=== PATIENT | female | born 1965 ===

== ENCOUNTER 2017-09-27 12:34 | Emergency (ER) | payer OTHER ==
[2017-09-27 12:51] VITALS: O2SAT 99
[2017-09-27] MEDS ORDERED: Sodium Chloride 0.9% 1,000 ML IV ONE (14:46)
[2017-09-27 15:10] LABS: BASO % 0.4 % (0.0-2.0); EOS # 0.3 K/uL (0.0-0.7); EOS % 3.3 % (0.0-4.0); HEMOGLOBIN 12.8 g/dL (11.0-16.0); LYMPH # 1.9 K/uL (1.0-4.3); LYMPH % 22.6 % (20.0-40.0); MEAN CELL VOLUME 92.5 fL (81.0-99.0); MEAN CORPUSCULAR HEMOGLOBIN 31.4 pg (27.0-31.0); MEAN CORPUSCULAR HGB CONC 33.9 g/dL (33.0-37.0); MEAN PLATELET VOLUME 7.1 fL (7.2-11.7); MONO # 0.7 K/uL (0.0-0.8); MONO % 8.4 % (0.0-10.0); NEUT # 5.4 K/uL (1.8-7.0); NEUT % 65.3 % (50.0-75.0); NRBC % 0.1 % (0.0-2.0); RBC 4.07 Mil/uL (3.80-5.20); RED CELL DISTRIBUTION WIDTH 13.4 % (11.5-14.5); WHITE BLOOD COUNT 8.3 K/uL (4.8-10.8)
[2017-09-27] MEDS ORDERED: Sodium Chloride 0.9% 1,000 ML ONE (15:12)
[2017-09-27 15:28] LABS: ALB/GLOB RATIO 1.1 (1.0-2.1); ALT/SGPT 29 U/L (9-52); AST/SGOT 27 U/L (14-36); BLOOD UREA NITROGEN 18 mg/dL (7-17); CALCIUM 9.4 mg/dl (8.6-10.4); GFR AFRICAN-AMERICAN > 60; GFR NON-AFRICAN AMERICAN > 60
--- NOTE | 2017-09-27 15:45 | C.PDOC ---
History Of Present Illness 52-year-old female, presents to the emergency department with complaints of six- day duration of sore throat, congestion and cough. Symptoms have persisted and progressed to the point that now she has post-tussive vomiting. Patient also notes associated clear nasal discharge, headache, generalized body aches and fever (T-Max 101). Of note, patient reports she is unable to sleep or rest. Time Seen by Provider: 09/27/17 14:40 Chief Complaint (Nursing): Shortness Of Breath History Per: Patient History/Exam Limitations: no limitations Onset/Duration Of Symptoms: Days (6) Current Symptoms Are (Timing): Still Present Severity: Moderate Past Medical History Reviewed: Historical Data, Nursing Documentation, Vital Signs Vital Signs: Last Vital Signs Temp 98.1 F 09/27/17 12:46 Pulse 84 09/27/17 12:46 Resp 16 09/27/17 15:12 BP 107/74 09/27/17 12:46 Pulse Ox 99 09/27/17 15:49 - Medical History PMH: Back Problems, Bronchitis, Hypercholesterolemia (NO MEDS), Kidney Stones, Chronic Kidney Disease Surgical History: Endoscopy Family History: States: No Known Family Hx - Social History Hx Tobacco Use: Yes Hx Alcohol Use: No Hx Substance Use: No - Immunization History Hx Tetanus Toxoid Vaccination: No Hx Influenza Vaccination: No Hx Pneumococcal Vaccination: No Review Of Systems Constitutional: Positive for: Fever. Negative for: Weakness ENT: Positive for: Nose Congestion, Throat Pain. Negative for: Ear Pain Cardiovascular: Negative for: Chest Pain Respiratory: Positive for: Cough. Negative for: Shortness of Breath Gastrointestinal: Positive for: Vomiting. Negative for: Abdominal Pain, Diarrhea Musculoskeletal: Negative for: Back Pain Skin: Negative for: Rash Neurological: Positive for: Headache Physical Exam - Physical Exam Appears: Non-toxic, No Acute Distress Skin: Normal Color, Warm, Dry, No Rash Head: Normacephalic Eye(s): bilateral: PERRL Nose: Normal, Discharge (clear, rhinorrhea) Oral Mucosa: Moist Lips: Normal Appearing Neck: Normal ROM Chest: Symmetrical Cardiovascular: Rhythm Regular, No Murmur Respiratory: No Decreased Breath Sounds, No Accessory Muscle Use, No Rales, No Rhonchi, No Stridor, No Wheezing, Other (Harsh, barking cough. No respiratory distress.) Extremity: Normal ROM, No Deformity, No Swelling Neurological/Psych: Oriented x3, Normal Speech ED Course And Treatment - Laboratory Results Result Diagrams: 09/27/17 15:03 09/27/17 15:03 Lab Interpretation: No Acute Changes O2 Sat by Pulse Oximetry: 99 (RA) Pulse Ox Interpretation: Normal - Radiology CXR: Interpreted by Me CXR Interpretation: Yes: No Acute Disease Reevaluation Time: 15:52 Reassessment Condition: Improved Disposition Counseled Patient/Family Regarding: Studies Performed, Diagnosis, Need For Followup, Rx Given - Disposition Referrals: Aldo Hawthorne MD [Staff Provider] - Disposition: HOME/ ROUTINE Disposition Time: 15:53 Condition: STABLE Prescriptions: Azithromycin [Zithromax] 250 mg PO DAILY #6 tab Methylprednisolone [Medrol Dose Pack (21 tabs)] 4 mg PO DAILY #21 mg Instructions: Acute Bronchitis Forms: [facility] (Thai) - Clinical Impression Clinical Impression: Bronchitis - Scribe Statement The provider has reviewed the documentation as recorded by the Scribe (Wali Kirby) All medical record entries made by the Scribe were at my direction and personally dictated by me. I have reviewed the chart and agree that the record accurately reflects my personal performance of the history, physical exam, medical decision making, and the department course for this patient. I have also personally directed, reviewed, and agree with the discharge instructions and disposition.
--- NOTE | 2017-09-27 15:50 | RAD ---
PROCEDURE: CHEST RADIOGRAPH, 1 VIEW HISTORY: SOB COMPARISON: Chest radiograph dated 08/03/2014 FINDINGS: LUNGS: Clear. PLEURA: No pneumothorax or pleural fluid seen. CARDIOVASCULAR: Normal. OSSEOUS STRUCTURES: No significant abnormalities. VISUALIZED UPPER ABDOMEN: Normal. OTHER FINDINGS: None. IMPRESSION: No active disease.
[2017-09-27 16:02] VITALS: BP 127/78; PULSE 75; RESP 18; TEMP 98.5
== END 2017-09-27 16:12 | disposition home or self-care (01) ==
LOC: C.ER 12:34
DX: J40 Bronchitis, not specified as acute or chronic (principal)
CPT/HCPCS: 71045; 80053; 82948; 85025; 87804; 96360; 99285; J7040

== ENCOUNTER 2017-10-01 10:27 | Emergency (ER) | payer OTHER ==
[2017-10-01 10:39] VITALS: RESP 16; O2SAT 98
--- NOTE | 2017-10-01 11:41 | C.PDOC ---
History Of Present Illness 52 year old female presents to the ED for evaluation of urticaria and gives over her arms and legs which began yesterday. Patient states she recently started taking z-pack for bronchitis. She has been taking Benadryl without relief. Patient denies mouth swelling, shortness of breath, wheezing, mouth swelling, headache, fever, chills, nausea, and vomiting. Time Seen by Provider: 10/01/17 10:46 Chief Complaint (Nursing): Allergic Reaction History Per: Patient History/Exam Limitations: no limitations Onset/Duration Of Symptoms: Hrs Current Symptoms Are (Timing): Still Present Possible Cause: Medication Associated Symptoms: Skin Rash. denies: Swelling, Trouble Swallowing Home/EMS Treatment: Benadryl Additional History Per: Patient Past Medical History Reviewed: Historical Data, Nursing Documentation, Vital Signs Vital Signs: Last Vital Signs Temp 97.8 F 10/01/17 11:52 Pulse 69 10/01/17 11:52 Resp 16 10/01/17 11:52 BP 114/75 10/01/17 11:52 Pulse Ox 98 10/01/17 14:14 - Medical History PMH: Back Problems, Bronchitis, Hypercholesterolemia (NO MEDS), Kidney Stones, Chronic Kidney Disease Surgical History: Endoscopy Family History: States: Unknown Family Hx - Social History Hx Tobacco Use: Yes Hx Alcohol Use: No Hx Substance Use: No - Immunization History Hx Tetanus Toxoid Vaccination: No Hx Influenza Vaccination: No Hx Pneumococcal Vaccination: No Review Of Systems Skin: Positive for: Other (urticaria and hives to arms and legs ) Physical Exam - Physical Exam Appears: Non-toxic, No Acute Distress Skin: Warm, Dry, Other (diffuse hives ) Head: Atraumatic, Normacephalic Eye(s): bilateral: Normal Inspection Oral Mucosa: Moist Tongue: Normal Appearing, No Swelling Lips: Normal Appearing, No Swelling Throat: Normal, No Erythema, No Exudate Neck: Supple Chest: Symmetrical, No Deformity, No Tenderness Cardiovascular: Rhythm Regular, No Murmur Respiratory: Normal Breath Sounds, No Rales, No Rhonchi, No Wheezing Extremity: Normal ROM, Capillary Refill (less than 2 seconds ) Neurological/Psych: Oriented x3, Normal Speech, Normal Cognition ED Course And Treatment O2 Sat by Pulse Oximetry: 98 (on RA) Pulse Ox Interpretation: Normal Medical Decision Making Medical Decision Making: Impression: 52 year old female with diffuse urticaria Plan: * Benadryl IVP * Pepcid PO * Prednisone PO * reassess and disposition Progress: Benadryl IVP, PEpcid PO, and Prednisone PO administered. On re-exam, patient is resting comfortably, showing no signs of respiratory distress and is stable for discharge. Patient is advised to f/u with her PMD within 1-2 days for further evaluation and/or return to the ED if symptoms persist or worsen. Disposition Counseled Patient/Family Regarding: Diagnosis, Need For Followup, Rx Given - Disposition Referrals: [facility] at [facility] [Outside] Disposition: HOME/ ROUTINE Disposition Time: 11:38 Condition: STABLE Additional Instructions: Follow up with your doctor or our clinic Prescriptions: DiphenhydrAMINE [Benadryl] 50 mg PO TID #9 cap Famotidine [Pepcid] 20 mg PO BID #6 tab Prednisone [Deltasone] 60 mg PO DAILY #9 tablet Instructions: Hives Forms: General Discharge Instructions, [facility] (Kuwaiti), Work Excuse - Clinical Impression Clinical Impression: Allergic urticaria - Scribe Statement The provider has reviewed the documentation as recorded by the Scribe (Trinity Haines) Provider Attestation: All medical record entries made by the Scribe were at my direction and personally dictated by me. I have reviewed the chart and agree that the record accurately reflects my personal performance of the history, physical exam, medical decision making, and the department course for this patient. I have also personally directed, reviewed, and agree with the discharge instructions and disposition.
[2017-10-01 11:53] VITALS: BP 114/75; PULSE 69; TEMP 97.8
== END 2017-10-01 11:55 | disposition home or self-care (01) ==
LOC: C.ER 10:27
DX: L50.0 Allergic urticaria (principal)

== ENCOUNTER 2017-12-22 16:44 | Emergency (ER) | payer OTHER ==
--- NOTE | 2017-12-22 17:33 | RAD ---
Date of service: 12/22/2017 PROCEDURE: Left Knee Radiographs. HISTORY: Pain. COMPARISON: None. FINDINGS: BONES: No acute fracture. JOINTS: Unremarkable. JOINT EFFUSION: None. OTHER FINDINGS: None. IMPRESSION: No demonstrated fracture or dislocation.
--- NOTE | 2017-12-22 17:43 | C.PDOC ---
History Of Present Illness 52 yo female w/o significant PMHx come in for evaluation of left knee pain gradually developed for past 3 days. Pt reports, " when I walk, my knee clicks and it hurts". Otherwise, pt denies known trauma or injury, fever, chills, deformity, skin changes over knee, swelling, redness, denies weakness, sensory or vascular deficits to Left leg, left calf pain. Ambulate to ED, knee brace noted. Time Seen by Provider: 12/22/17 16:53 Chief Complaint (Nursing): Lower Extremity Problem/Injury History Per: Patient Past Medical History Reviewed: Historical Data, Nursing Documentation, Vital Signs Vital Signs: Last Vital Signs Temp 98.7 F 12/22/17 17:01 Pulse 91 H 12/22/17 17:01 Resp 18 12/22/17 17:01 BP 100/62 12/22/17 17:01 Pulse Ox 100 12/22/17 17:01 - Medical History PMH: Back Problems, Bronchitis, Hypercholesterolemia (NO MEDS), Kidney Stones, Chronic Kidney Disease Surgical History: Endoscopy Family History: States: Unknown Family Hx - Social History Hx Tobacco Use: Yes Hx Alcohol Use: No Hx Substance Use: No - Immunization History Hx Tetanus Toxoid Vaccination: No Hx Influenza Vaccination: No Hx Pneumococcal Vaccination: No Review Of Systems Except As Marked, All Systems Reviewed And Found Negative. Constitutional: Negative for: Fever, Chills ENT: Negative for: Throat Pain, Throat Swelling Genitourinary: Negative for: Incontinence Musculoskeletal: Positive for: Other (Left knee pain) Skin: Negative for: Rash, Bruising Neurological: Negative for: Weakness, Numbness Physical Exam - Physical Exam Appears: Well, Non-toxic, No Acute Distress Skin: Normal Color, Warm, No Rash, No Ecchymosis Head: Normacephalic Eye(s): bilateral: PERRL Extremity: Normal ROM (FAROM of Left knee with mild discomfort to Left knee flexion due to pain. No neurovascular deficist distally.), Tenderness (diffuse over anterior aspect Left knee. No palpable deformity, no edema, no erythema or warmth.), No Calf Tenderness (Left), Capillary Refill (less than 2sec to left foot), No Deformity, No Swelling Neurological/Psych: Oriented x3, Normal Speech, Normal Motor, Normal Sensation, Normal Reflexes ED Course And Treatment O2 Sat by Pulse Oximetry: 100 Pulse Ox Interpretation: Normal - Other Rad Left knee X-Ray: Read By Radiologist Interpretation: (-) acute fx or dislocation Progress Note: On re-evaluation, pt is afebrile, hemodynamicaly stable. Non- toxic. Ambulatory in ED with stable gait. ENT: No acute findings. Left knee: exam mild tenderness anterior aspect knee, No edmea, no erythema, no deformity. FAROM, no neurovascular deficits. Imaging review (-) acute fx or disloctaion. Pt has clinical findings c/w Left knee arthralgia. Knee brace re-applied. Pt advised. ref. to f/u with Ortho in 2 -3 days for re-evaluation. return to ED if any worsening or new changes. Disposition Counseled Patient/Family Regarding: Studies Performed, Diagnosis, Need For Followup, Rx Given - Disposition Referrals: Shaik Andrews MD [Staff Provider] - Juan R Suarez III, MD [Staff Provider] - Disposition: HOME/ ROUTINE Disposition Time: 17:38 Condition: STABLE Additional Instructions: Knee brace take medication as prescribed Follow up with PMD, Orthopedist in 2-3 days for further evaluation, MRI of knee for evaluation of ligament and meniscus injury. return to ED if nay worsening or new changes. Prescriptions: Prednisone [Deltasone] 40 mg PO DAILY #6 tablet Instructions: Knee Pain (DC), Osteoarthritis - Clinical Impression Clinical Impression: Arthralgia of knee
[2017-12-22 18:10] VITALS: BP 104/70; PULSE 80; RESP 20; TEMP 98.1; O2SAT 97
== END 2017-12-22 18:11 | disposition home or self-care (01) ==
LOC: C.ER 16:44
DX: M25.562 Pain in left knee (principal)

== ENCOUNTER 2018-01-14 15:51 | Emergency (ER) | payer OTHER ==
[2018-01-14 16:09] VITALS: BP 121/69; PULSE 95; RESP 16; TEMP 98; O2SAT 98
--- NOTE | 2018-01-14 16:29 | C.PDOC ---
History Of Present Illness 52 yo female come in for re-evaluation of left knee pain gradually developed for past 3 days. Pt reports, " when I walk, my knee clicks and it hurts". Pt admits, was seen here in ED month ago when imaging was done without acute findings and received Rx: Tramadol, Prednisone with complete resolution of sx. Pt reports, pain over posterior Left knee gradually re-occur over past week. Pain is localized, worse with weight bearing. Pt request "same treatment, while waiting for ortho appointment". Otherwise, pt denies known recent trauma or injury, fever, chills, deformity, skin changes over knee, swelling, redness, denies weakness, sensory or vascular deficits to Left leg, left calf pain. Ambulate to ED, knee brace noted. Time Seen by Provider: 01/14/18 16:06 Chief Complaint (Nursing): Lower Extremity Problem/Injury History Per: Patient Onset/Duration Of Symptoms: Gradual Past Medical History Reviewed: Historical Data, Nursing Documentation, Vital Signs Vital Signs: Last Vital Signs Temp 98 F 01/14/18 16:07 Pulse 95 H 01/14/18 16:07 Resp 16 01/14/18 16:07 BP 121/69 01/14/18 16:07 Pulse Ox 98 01/14/18 17:11 - Medical History PMH: Back Problems, Bronchitis, Hypercholesterolemia (NO MEDS), Kidney Stones, Chronic Kidney Disease Surgical History: Endoscopy Family History: States: Unknown Family Hx - Social History Hx Tobacco Use: Yes Hx Alcohol Use: No Hx Substance Use: No - Immunization History Hx Tetanus Toxoid Vaccination: No Hx Influenza Vaccination: No Hx Pneumococcal Vaccination: No Review Of Systems Except As Marked, All Systems Reviewed And Found Negative. Constitutional: Negative for: Fever, Chills ENT: Negative for: Throat Pain, Throat Swelling Cardiovascular: Negative for: Chest Pain, Palpitations Musculoskeletal: Positive for: Other (Left knee pain). Negative for: Neck Pain , Back Pain Skin: Negative for: Rash, Lesions, Bruising Neurological: Negative for: Weakness, Numbness Physical Exam - Physical Exam Appears: Well, Non-toxic, No Acute Distress Skin: Normal Color, Warm, No Ecchymosis Head: Normacephalic Eye(s): bilateral: PERRL Extremity: Normal ROM (mild discomfort to Left knee flexion due to pain, no neurovascular deficits.), Tenderness (mod over posterior aspect Left knee. No edema, no erythema, no palpable deformity.), No Deformity, No Swelling Neurological/Psych: Oriented x3, Normal Speech, Normal Motor, Normal Sensation, Normal Reflexes ED Course And Treatment O2 Sat by Pulse Oximetry: 98 - Other Rad Left knee from 12/22/17 X-Ray: Read By Radiologist Interpretation: Accession No. : [id number]. Patient Name / ID : ANNIE HALL / [id number]. Exam Date : 12/22/2017 17:20:56 ( Approved ). Study Comment : Sex / Age : F / 52Y. Creator : Boyd Chavez MD. Dictator : Boyd Chavez MD. Fuselage Framer : Card Mounter : Boyd Chavez MD. Approver2 : Report Date : 12/22/2017 17:31:25. My Comment : . Date of service: 12/22/2017. PROCEDURE: Left Knee Radiographs. HISTORY: Pain. COMPARISON: None. FINDINGS: BONES: No acute fracture. JOINTS: Unremarkable. JOINT EFFUSION: None. OTHER FINDINGS: None. IMPRESSION: No demonstrated fracture or dislocation. Progress Note: On re-evaluation, pt is afebrile, hemodynamicaly stable. AMbulatory in ED. Left knee: diffuse posterior Left knee tenderness. No edema, no erythema, no palpable deformity. FAROM, no neurovascular deficits. Imaging from previous visits review, appears normal. No recent injury by history. Pt has clinical findings c/w Left knee arthralgia, chronic. Left knee immobilizer applied to Left knee. Pt advised on course of ds. ref. to F/u with Ortho in 2 -3 days for re-eval. return if any new changes. Disposition Counseled Patient/Family Regarding: Diagnosis, Need For Followup, Rx Given - Disposition Referrals: Shaik Andrews MD [Staff Provider] - at [facility] [Outside] Disposition: HOME/ ROUTINE Disposition Time: 16:28 Condition: STABLE Additional Instructions: Follow up with Orthopedist in 2-3 days for re-evaluation and further treatment Return to ED if any worsening or new changes. Prescriptions: Prednisone [Deltasone] 40 mg PO DAILY #6 tablet traMADol [Ultram] 50 mg PO TID #7 tab Instructions: Knee Immobilizer (DC), Chronic Knee Pain Forms: [facility] (Croatian) - Clinical Impression Clinical Impression: Arthralgia of knee
== END 2018-01-14 16:38 | disposition home or self-care (01) ==
LOC: C.ER 15:51
DX: M25.562 Pain in left knee (principal)

== ENCOUNTER 2018-05-07 16:36 | Emergency (ER) | payer OTHER ==
[2018-05-07 17:05] VITALS: BP 135/80; PULSE 89; RESP 18; TEMP 98.6; O2SAT 100
[2018-05-07] MEDS ORDERED: Albuterol-Ipratrop 3 mg / 0.5 (3 ml) UD ONE (17:16)
[2018-05-07] MEDS ORDERED: Albuterol 0.083% Inhal Sol (2.5 mg/3 mL) UD IH STA ×2 (17:23→17:39)
[2018-05-07] MEDS ORDERED: Promethazine/Cod 6.25mg-10mg/5ml Syr UD PO STA (17:23)
[2018-05-07] MEDS ORDERED: Promethazine/Cod 6.25mg-10mg/5ml Syr UD ONE (17:39)
--- NOTE | 2018-05-07 17:45 | C.PDOC ---
History Of Present Illness 52 yo female w/PMHx of asthma, smoker comes in for evaluation of cold sx for past 3-4 days associated with nasal congestion, runny nose, dry cough. Pt sts, since early today, developed chest tightness, " spasmatic cough". Otherwise, pt denies high fever, chills, headache, dizziness, drooling. dysphagia, dyspnea, wheezing, abd. pain, N/V/D, UTO sx. Ambulate to Ed for evaluation, occasional dry cough monitored in ED. Time Seen by Provider: 05/07/18 17:22 Chief Complaint (Nursing): Cough, Cold, Congestion History Per: Patient Past Medical History Reviewed: Historical Data, Nursing Documentation, Vital Signs Vital Signs: Last Vital Signs Temp 98.6 F 05/07/18 17:02 Pulse 89 05/07/18 17:02 Resp 18 05/07/18 17:02 BP 135/80 05/07/18 17:02 Pulse Ox 100 05/07/18 17:02 - Medical History PMH: Back Problems, Bronchitis, Hypercholesterolemia (NO MEDS), Kidney Stones, Chronic Kidney Disease Surgical History: Endoscopy Family History: States: Unknown Family Hx - Social History Hx Tobacco Use: Yes Hx Alcohol Use: No Hx Substance Use: No - Immunization History Hx Tetanus Toxoid Vaccination: No Hx Influenza Vaccination: No Hx Pneumococcal Vaccination: No Review Of Systems Except As Marked, All Systems Reviewed And Found Negative. Constitutional: Negative for: Fever, Chills ENT: Positive for: Nose Discharge, Nose Congestion. Negative for: Ear Discharge, Throat Pain, Throat Swelling Cardiovascular: Negative for: Chest Pain, Palpitations, Edema, Light Headedness Respiratory: Positive for: Shortness of Breath. Negative for: Cough, SOB with Excertion, Pleuritic Pain, Sputum, Wheezing Gastrointestinal: Negative for: Nausea, Vomiting, Abdominal Pain Musculoskeletal: Negative for: Neck Pain, Back Pain Skin: Negative for: Rash Neurological: Negative for: Altered Mental Status, Headache, Dizziness Physical Exam - Physical Exam Appears: Well, Non-toxic, No Acute Distress Skin: Normal Color, Warm, Dry, No Rash Head: Normacephalic Eye(s): bilateral: PERRL Nose: No Flaring, Discharge (B/l congestion) Oral Mucosa: Moist Throat: No Erythema, No Drooling Neck: Supple Cardiovascular: Rhythm Regular, No Murmur, No JVD Respiratory: No Decreased Breath Sounds, No Accessory Muscle Use, No Stridor, No Wheezing Gastrointestinal/Abdominal: Soft, No Tenderness, No Distention, No Guarding, No Rebound Extremity: Normal ROM, No Deformity, No Swelling Neurological/Psych: Oriented x3, Normal Speech ED Course And Treatment ECG: Interpreted By Me, Viewed By Me ECG Rhythm: Sinus Rhythm ECG Interpretation: No Changes From Prior Interpretation Of ECG: SR@91/min, no acute T wave or ST-T changes O2 Sat by Pulse Oximetry: 100 Pulse Ox Interpretation: Normal - Radiology CXR: Interpreted by Me, Read By Radiologist CXR Interpretation: Yes: No Acute Disease Progress Note: On re-eval, pt is afebrile, hemodynamicaly stable. NOn-toxic, not in resp. distress. PulseOx 99% RA. ENT: no acute findings. neck: SUpple, (-) JVD, (-) carotid bruits B/L. Lungs: CTA B/L, BS equal B/L. CVS: (+)S1S2, reg, (-) murmur. Abd: benign. Back: (-) CVA tenderness. neuorlogicaly intact. EKG, CXR- normal study. Pt has clinical findings c/w acute bronchitis, asthma, smoker. Pt advised and ref. to f/u with PMD in 2-3 days for re-eval. return if any new changes. Disposition Counseled Patient/Family Regarding: Studies Performed, Diagnosis, Need For Followup, Rx Given - Disposition Referrals: [facility] [Outside] Disposition: HOME/ ROUTINE Disposition Time: 18:59 Condition: STABLE Additional Instructions: Encourage fluids Take medication as prescribed Follow up with PMD in 2-3 days for re-evaluation. return to Ed if any worsening or new changes. Prescriptions: Albuterol 0.083% [Albuterol 0.083% Inhal Aubrie (2.5 mg/3 ml) UD] 2.5 mg IH Q6 #50 neb Albuterol HFA [Ventolin HFA 90 mcg/actuation (8 g)] 1 puff IH Q6 #1 inhaler Cefdinir [Omnicef] 300 mg PO BID #14 cap Prednisone [Deltasone] 40 mg PO DAILY #6 tablet Promethazine/Codeine [Phenergan/Codeine Oral Syrup] 10 ml PO BID #100 ml Instructions: Acute Bronchitis Forms: [facility] (Mongolian) - Clinical Impression Clinical Impression: Bronchitis
[2018-05-07] MEDS ORDERED: Racepinephrine 2.25% Inhal Soln 0.5 ML UD INH ONE (17:58)
[2018-05-07] MEDS ORDERED: Albuterol 0.083% Inhal Sol (2.5 mg/3 mL) UD ONE (18:03)
[2018-05-07] MEDS ORDERED: Racepinephrine 2.25% Inhal Soln 0.5 ML UD ONE (18:03)
--- NOTE | 2018-05-07 18:21 | RAD ---
Date of service: 05/07/2018 HISTORY: Cough COMPARISON: 09/27/2017 TECHNIQUE: Chest PA and lateral FINDINGS: LUNGS: No active pulmonary disease. PLEURA: No significant pleural effusion identified. No pneumothorax apparent. CARDIOVASCULAR: No aortic atherosclerotic calcification present. Normal cardiac size. No pulmonary vascular congestion. OSSEOUS STRUCTURES: No significant abnormalities. VISUALIZED UPPER ABDOMEN: Normal. OTHER FINDINGS: None. IMPRESSION: No active disease. No significant interval change compared to the prior examination(s). Concordant results with the preliminary interpretation rendered by the emergency department physician procedure.
--- NOTE | 2018-05-08 17:08 | CARD ---
APPROVED REPORT Date of service: 05/07/2018 EKG Measurement Heart [id number] <Conclusion> Normal sinus rhythm Possible Left atrial enlargement ST & T wave abnormality, nonspecific Prolonged QT Abnormal ECG
== END 2018-05-07 19:11 | disposition home or self-care (01) ==
LOC: C.ER 16:36
DX: J40 Bronchitis, not specified as acute or chronic (principal); E78.00 Pure hypercholesterolemia, unspecified; F17.200 Nicotine dependence, unspecified, uncomplicated

== ENCOUNTER 2018-07-16 15:36 | Emergency (ER) | payer OTHER ==
[2018-07-16 15:50] VITALS: TEMP 98.3
--- NOTE | 2018-07-16 16:11 | C.PDOC ---
History Of Present Illness 53 year old female presents to the ED for evaluation of left knee pain and swelling for 4-5 days. Patient reports history of an old injury to the knee in January 2018, and has been hearing an occasional clicking sound and feeling pain to the area since. She was instructed to follow up with orthopedic care, but was unable to due to insurance issues. She denies fever, chills, rash, calf pain, or any new injuries/trauma or falls. Time Seen by Provider: 07/16/18 15:51 Chief Complaint (Nursing): Lower Extremity Problem/Injury History Per: Patient History/Exam Limitations: no limitations Onset/Duration Of Symptoms: Days (4-5) Current Symptoms Are (Timing): Still Present - Knee Description Of Injury: Other (old injury ) Past Medical History Reviewed: Historical Data, Nursing Documentation, Vital Signs Vital Signs: Last Vital Signs Temp 98.3 F 07/16/18 15:46 Pulse 89 07/16/18 15:46 Resp 18 07/16/18 15:46 BP 122/79 07/16/18 15:46 Pulse Ox 97 07/16/18 15:46 - Medical History PMH: Back Problems, Bronchitis, Hypercholesterolemia, Kidney Stones, Chronic Kidney Disease Surgical History: Endoscopy Family History: States: Unknown Family Hx - Social History Hx Tobacco Use: Yes Hx Alcohol Use: No Hx Substance Use: No - Immunization History Hx Tetanus Toxoid Vaccination: No Hx Influenza Vaccination: No Hx Pneumococcal Vaccination: No Review Of Systems Constitutional: Negative for: Fever, Chills Musculoskeletal: Negative for: Other (left knee pain and swelling. no calf pain ) Skin: Negative for: Rash Physical Exam - Physical Exam Appears: Non-toxic, Other (in mild pain ) Skin: Normal Color, Warm, Dry Head: Atraumatic, Normacephalic Eye(s): bilateral: Normal Inspection Oral Mucosa: Moist Neck: Supple Chest: Symmetrical, No Deformity, No Tenderness Cardiovascular: Rhythm Regular, No Murmur Respiratory: Normal Breath Sounds, No Rales, No Rhonchi, No Wheezing Extremity: Normal ROM, Tenderness (to left suprapatellar region ), No Calf Tenderness, Capillary Refill (less than 2 seconds ), No Deformity, Other (suprapatellar effusion to left knee. no palpable mass to popliteal area. no warmth or erythema to skin ) Pulses: Left Dorsalis Pedis: Normal, Right Dorsalis Pedis: Normal Neurological/Psych: Oriented x3, Normal Speech, Normal Cognition, Normal Motor, Normal Sensation ED Course And Treatment O2 Sat by Pulse Oximetry: 97 (on RA) Pulse Ox Interpretation: Normal Progress Note: Patient reports allergy to NSAIDS. Prednisone PO and Tylenol PO given. Knee brace applied and patient was trained on crutch use. On reassessment, patient is resting comfortably, showing no signs of distress and reports an improvement in her pain. She is advised to follow up with orthopedic care within 1 week for further evaluation. Disposition Counseled Patient/Family Regarding: Studies Performed, Diagnosis, Need For Followup, Rx Given - Disposition Referrals: Bud Younger MD [Staff Provider] - Shaik Andrews MD [Staff Provider] - Disposition: HOME/ ROUTINE Disposition Time: 16:30 Condition: STABLE Additional Instructions: FOLLOW UP WITH ORTHOPEDICS WITHIN 1 WEEK USE MEDICATIONS NEEDED ELEVATE THE LEG MUCH POSSIBLE RETURN TO ER IF SYMPTOMS WORSEN Prescriptions: Acetaminophen [Tylenol 325mg tab] 650 mg PO Q6 PRN #30 tab PRN Reason: pain/fever predniSONE [predniSONE Tab] 40 mg PO DAILY #8 tab traMADol [Ultram] 50 mg PO BID PRN #12 tab PRN Reason: pain Instructions: Bursitis (DC) Forms: [employer] (Tanzanian) Print Language: KYRGYZ - Clinical Impression Clinical Impression: Bursitis of left knee - Scribe Statement The provider has reviewed the documentation as recorded by the Scribe (Trinity Haines) Provider Attestation: All medical record entries made by the Scribe were at my direction and personally dictated by me. I have reviewed the chart and agree that the record accurately reflects my personal performance of the history, physical exam, medical decision making, and the department course for this patient. I have also personally directed, reviewed, and agree with the discharge instructions and disposition.
[2018-07-16 17:14] VITALS: BP 128/76; PULSE 68; RESP 16
[2018-07-17 14:02] VITALS: O2SAT 97
== END 2018-07-16 17:14 | disposition home or self-care (01) ==
LOC: C.ER 15:36
DX: M70.52 Other bursitis of knee, left knee (principal)

== ENCOUNTER 2018-07-18 15:54 | Emergency (ER) | payer OTHER ==
[2018-07-18 16:03] VITALS: TEMP 97.9
--- NOTE | 2018-07-18 16:23 | C.PDOC ---
History Of Present Illness 53 y/o female presents to the ER complaining of left knee swelling which has been present for the past few months. Patient states that she had remote trauma 3 months ago and had xrays at that time. Patient reports she was evaluated for same complaint in [facility] 2 days ago. At the time, she was diagnosed with bursitis and she was prescribed Prednisone and follow up with orthopedics. She has been taking Prednisone, but she still has pain and swelling. She notes that she has not followed up with an orthopedist stating the next appointment would be in 2019. Denies having weakness and numbness. She is able to fully weight bear. Time Seen by Provider: 07/18/18 16:06 Chief Complaint (Nursing): Lower Extremity Problem/Injury History Per: Patient History/Exam Limitations: no limitations Onset/Duration Of Symptoms: Days Current Symptoms Are (Timing): Still Present Severity: Moderate Past Medical History Reviewed: Historical Data, Nursing Documentation, Vital Signs Vital Signs: Last Vital Signs Temp 97.9 F 07/18/18 16:01 Pulse 88 07/18/18 16:01 Resp 18 07/18/18 16:01 BP 129/65 07/18/18 16:01 Pulse Ox 96 07/18/18 16:01 - Medical History PMH: Back Problems, Bronchitis, Hypercholesterolemia, Kidney Stones, Chronic Kidney Disease Surgical History: Endoscopy Family History: States: No Known Family Hx - Social History Hx Tobacco Use: Yes Hx Alcohol Use: No Hx Substance Use: No - Immunization History Hx Tetanus Toxoid Vaccination: No Hx Influenza Vaccination: No Hx Pneumococcal Vaccination: No Review Of Systems Constitutional: Negative for: Fever, Chills Musculoskeletal: Positive for: Other (left knee pain and swelling) Neurological: Negative for: Weakness, Numbness Physical Exam - Physical Exam Appears: Non-toxic, No Acute Distress Skin: Normal Color, Warm, Dry Head: Atraumatic, Normacephalic Eye(s): bilateral: Normal Inspection Nose: Normal Oral Mucosa: Moist Neck: Supple Chest: Symmetrical Cardiovascular: Rhythm Regular Respiratory: Normal Breath Sounds, No Rales, No Rhonchi, No Wheezing Extremity: No Normal ROM (full extension and some restriction of flexion about 90 degrees in left knee), No Tenderness Extremity: Left: Joint Effusion (suprapatellar effusion to left knee) Neurological/Psych: Oriented x3, Normal Speech ED Course And Treatment O2 Sat by Pulse Oximetry: 96 (RA) Pulse Ox Interpretation: Normal Disposition Counseled Patient/Family Regarding: Diagnosis, Need For Followup - Disposition Referrals: [facility] at [facility] [Outside] Disposition: HOME/ ROUTINE Disposition Time: 16:22 Condition: STABLE Additional Instructions: Follow up with your primary provider to obtain an outpatient MRI and referral for physical therapy. Complete the Prednisone as prescribed then switch to Aleve 2 tablets every 12 hours as needed. Instructions: Swollen Joints Forms: [employer] (Hong Konger) - Clinical Impression Clinical Impression: Effusion, left knee - Scribe Statement The provider has reviewed the documentation as recorded by the Octaviaibe Catrachita Denise Provider Attestation: All medical record entries made by the Leonarda were at my direction and personally dictated by me. I have reviewed the chart and agree that the record accurately reflects my personal performance of the history, physical exam, medical decision making, and the department course for this patient. I have also personally directed, reviewed, and agree with the discharge instructions and disposition.
[2018-07-18 17:30] VITALS: BP 159/68; PULSE 75; RESP 20; O2SAT 98
== END 2018-07-18 17:32 | disposition home or self-care (01) ==
LOC: C.ER 15:54
DX: M25.462 Effusion, left knee (principal); E78.00 Pure hypercholesterolemia, unspecified; N18.9 Chronic kidney disease, unspecified; Z72.0 Tobacco use

== ENCOUNTER 2018-07-26 09:41 | Outpatient (CLI) | payer OTHER | END 2018-07-26 09:42 | disposition home or self-care (01) | LOC: C.MAMMO 09:42 | DX: Z12.31 Encounter for screening mammogram for malignant neoplasm of breast (principal) ==

== ENCOUNTER 2018-10-14 12:58 | Observation (INO) | payer OTHER ==
[2018-10-14 13:06] VITALS: BMI 23.3
[2018-10-14] MEDS ORDERED: Lidocaine 5% Patch TD STA (13:40)
[2018-10-14] MEDS ORDERED: Lidocaine 5% Patch TD ONE (13:58)
[2018-10-14] MEDS ORDERED: Morphine 4 MG/ML VIAL ONE ×2 (13:58→23:31)
--- NOTE | 2018-10-14 14:19 | RAD ---
Date of service: 10/14/2018 PROCEDURE: Radiographs of the Lumbar Spine. HISTORY: pain COMPARISON: No prior. TECHNIQUE: 5 views obtained. FINDINGS: BONES: Normal alignment. No listhesis. No fracture. DISC SPACES: [id number] narrowing of the intervertebral disc is space at L5-S1 noted. OTHER FINDINGS: None. IMPRESSION: Mild spondylosis. [id number]-ln-[id number] narrowing of the intervertebral disc is space at L5-S1.
[2018-10-14 15:27] LABS: SQUAMOUS EPITHIAL 2 /hpf (0-5); URINE BILIRUBIN NEGATIVE (NEGATIVE); URINE BLOOD 2+ (NEGATIVE); URINE CLARITY Hazy (Clear); URINE COLOR Yellow (YELLOW); URINE GLUCOSE (UA) NORMAL (Normal); URINE HYALINE CAST 0-2 /lpf (0-2); URINE LEUKOCYTE ESTERASE NEG Leu/uL (Negative); URINE PROTEIN NEGATIVE (NEGATIVE)
[2018-10-14] MEDS ORDERED: LIDOCAINE IV STA (15:47)
[2018-10-14] MEDS ORDERED: SODIUM CHLORIDE 0.9% IV STA (15:47)
[2018-10-14] MEDS ORDERED: Sodium Chloride 0.9% 1,000 ML IV STA (15:47)
[2018-10-14] MEDS ORDERED: Sodium Chloride 0.9% 1,000 ML ONE (15:59)
[2018-10-14 16:08] LABS: BASO # 0.1 K/uL (0.0-0.2); BASO % 0.7 % (0.0-2.0); EOS # 0.5 K/uL (0.0-0.7); EOS % 6.5 % (0.0-4.0); LYMPH # 2.6 K/uL (1.0-4.3); LYMPH % 32.2 % (20.0-40.0); MEAN CELL VOLUME 93.7 fL (81.0-99.0); MEAN CORPUSCULAR HEMOGLOBIN 31.2 pg (27.0-31.0); MEAN CORPUSCULAR HGB CONC 33.3 g/dL (33.0-37.0); MONO # 0.6 K/uL (0.0-0.8); MONO % 7.1 % (0.0-10.0); NEUT # 4.4 K/uL (1.8-7.0); NEUT % 53.5 % (50.0-75.0); RBC 4.49 Mil/uL (3.80-5.20); RED CELL DISTRIBUTION WIDTH 13.6 % (11.5-14.5); WHITE BLOOD COUNT 8.2 K/uL (4.8-10.8)
[2018-10-14 16:20] LABS: ALB/GLOB RATIO 1.4 (1.0-2.1); ALBUMIN 4.5 g/dL (3.5-5.0); ALT/SGPT 23 U/L (9-52); AST/SGOT 21 U/L (14-36); BLOOD UREA NITROGEN 13 mg/dL (7-17); CALCIUM 9.8 mg/dl (8.6-10.4); GFR NON-AFRICAN AMERICAN > 60; LIPASE 26 U/L (23-300)
--- NOTE | 2018-10-14 16:29 | C.PDOC ---
History Of Present Illness 53 year old female presents to the ED BIBA for evaluation of right low back pain for one day. Reports she went to physical therapy for her knee injury 2 days ago and her physical therapist made her work harder than usual. Reports she started feeling the pain one day after the physical therapy. Notes she was unable to move yesterday. Denies any urinary incontinence, weakness, numbness, tingling, or radiation of pain. Time Seen by Provider: 10/14/18 13:12 Chief Complaint (Nursing): Back Pain History Per: Patient, EMS History/Exam Limitations: no limitations Onset/Duration Of Symptoms: Days (1) Current Symptoms Are (Timing): Still Present Quality Of Discomfort: "Pain" Past Medical History Reviewed: Historical Data, Nursing Documentation, Vital Signs Vital Signs: Last Vital Signs Temp 97.7 F 10/14/18 15:11 Pulse 70 10/14/18 15:11 Resp 20 10/14/18 15:11 BP 123/76 10/14/18 15:11 Pulse Ox 100 10/14/18 15:11 Primary Care Provider: Kathleen Duenas - Medical History PMH: Back Problems, Bronchitis, Hypercholesterolemia, Kidney Stones, Chronic Kidney Disease Surgical History: Endoscopy Family History: States: No Known Family Hx - Social History Hx Tobacco Use: Yes Hx Alcohol Use: No Hx Substance Use: No - Immunization History Hx Tetanus Toxoid Vaccination: No Hx Influenza Vaccination: No Hx Pneumococcal Vaccination: No Review Of Systems Except As Marked, All Systems Reviewed And Found Negative. Constitutional: Negative for: Fever, Chills Cardiovascular: Negative for: Chest Pain Respiratory: Negative for: Shortness of Breath Gastrointestinal: Negative for: Nausea, Vomiting, Abdominal Pain, Diarrhea Genitourinary: Negative for: Incontinence Musculoskeletal: Positive for: Back Pain Neurological: Negative for: Weakness, Numbness Physical Exam - Physical Exam Appears: Non-toxic, No Acute Distress Skin: Warm, Dry, No Rash Head: Normacephalic Eye(s): bilateral: Normal Inspection, PERRL, EOMI Nose: Normal Oral Mucosa: Moist Neck: Supple Chest: Symmetrical Cardiovascular: Rhythm Regular Respiratory: Normal Breath Sounds, No Rales, No Rhonchi, No Wheezing Gastrointestinal/Abdominal: Soft, No Tenderness Back: Other (right lower back tenderness) ED Course And Treatment - Laboratory Results Result Diagrams: 10/14/18 16:03 10/14/18 16:03 Lab Results: Total Bilirubin 0.5 mg/dL (0.2-1.3) 10/14/18 16:03 AST 21 U/L (14-36) 10/14/18 16:03 ALT 23 U/L (9-52) 10/14/18 16:03 Alkaline Phosphatase 108 U/L (38-126) 10/14/18 16:03 Total Protein 7.8 g/dL (6.3-8.3) 10/14/18 16:03 Albumin 4.5 g/dL (3.5-5.0) 10/14/18 16:03 Globulin 3.3 gm/dL (2.2-3.9) 10/14/18 16:03 Albumin/Globulin Ratio 1.4 (1.0-2.1) 10/14/18 16:03 Lipase 26 U/L (23-300) 10/14/18 16:03 Urine Color Yellow (YELLOW) 10/14/18 15:10 Urine Clarity Hazy (Clear) 10/14/18 15:10 Urine pH 7.0 (5.0-8.0) 10/14/18 15:10 Ur Specific Moody 1.015 (1.003-1.030) 10/14/18 15:10 Urine Protein Negative mg/dL (NEGATIVE) 10/14/18 15:10 Urine Glucose (UA) Normal mg/dL (Normal) 10/14/18 15:10 Urine Ketones Negative mg/dL (NEGATIVE) 10/14/18 15:10 Urine Blood 2+ (NEGATIVE) H 10/14/18 15:10 Urine Nitrate Negative (NEGATIVE) 10/14/18 15:10 Urine Bilirubin Negative (NEGATIVE) 10/14/18 15:10 Urine Urobilinogen 2.0 mg/dL (0.2-1.0) H 10/14/18 15:10 Ur Leukocyte Esterase Neg Rosalio/uL (Negative) 10/14/18 15:10 Urine WBC (Auto) 4 /hpf (0-5) 10/14/18 15:10 Urine RBC (Auto) 12 /hpf (0-3) H 10/14/18 15:10 Ur Squamous Epith Cells 2 /hpf (0-5) 10/14/18 15:10 Hyaline Casts 0-2 /lpf (0-2) 10/14/18 15:10 O2 Sat by Pulse Oximetry: 100 (RA) Pulse Ox Interpretation: Normal - Other Rad LS SPINE XRAY X-Ray: Viewed By Me, Read By Radiologist Interpretation: Accession No. : [id number]. Patient Name / ID : ANNIE HALL / [id number]. Exam Date : 10/14/2018 13:50:03 ( Approved ). Study Comment : Sex / Age : F / 53Y. Creator : Shawnee Arora MD. Dictator : Shawnee Arora MD. Batcher Operator : Cyber Systems Operations Specialist : Shawnee Arora MD. Approver2 : Report Date : 10/14/2018 14:16:30. My Comment : . Date of service: 10/14/2018. PROCEDURE: Radiographs of the Lumbar Spine. HISTORY: pain. COMPARISON: No prior. TECHNIQUE: 5 views obtained. FINDINGS: BONES: Normal alignment. No listhesis. No fracture. DISC SPACES: Ujby-to-[id number] narrowing of the intervertebral disc is space at L5-S1 noted. OTHER FINDINGS: None. IMPRESSION: Mild spondylosis. Ecjw-pj-yawhoaql narrowing of the intervertebral disc is space at L5-S1. - CT Scan/US Abdomen/pelvis CT Other Rad Studies (CT/US): Read By Radiologist, Radiology Report Reviewed CT/US Interpretation: Accession No. : [id number]. Patient Name / ID : ANNIE HALL / [id number]. Exam Date : 10/14/2018 16:27:17 ( Approved ). Study Comment : Sex / Age : F / 53Y. Creator : Jillian Oconnell. Dictator : Shawnee Arora MD. Batcher Operator : Cyber Systems Operations Specialist : Shawnee Arora MD. Approver2 : Report Date : 10/14/2018 16:35:55. My Comment : . Date of service: 10/14/2018. PROCEDURE: CT Abdomen and Pelvis without intravenous contrast. HISTORY: right back/flank pain. COMPARISON: Comparison is made with 09/21/2015. TECHNIQUE: Axial and reformatted coronal and sagittal CT images of the abdomen and pelvis were obtained without IV or oral contrast administration.. Contrast dose: 0. Radiation dose: Total exam DLP = 321.32 mGy-cm. This CT exam was performed using one or more of the following dose reduction techniques: Automated exposure control, adjustment of the mA and/or kV according to patient size, and/or use of iterative reconstruction technique. FINDINGS: LOWER THORAX: Unremarkable. LIVER: Unremarkable. No gross lesion or ductal dilatation. GALLBLADDER AND BILE DUCTS: Unremarkable. PANCREAS: Unremarkable. No gross lesion or ductal dilatation. SPLEEN: Unremarkable. ADRENALS: Unremarkable. No mass. KIDNEYS AND URETERS: There is 3 millimeter nonobstructing calculus at the lower pole of the right kidney. There is punctate less than 2 millimeter nonobstructing calculus at the upper pole of the right kidney. There is 2 millimeter nonobstructing calculus at the upper pole of the left kidney. No evidence of hydronephrosis or hydroureter. VASCULATURE: Unremarkable. No aortic aneurysm. Foci of atherosclerotic calcification noted in the abdominal aorta and iliac arteries. BOWEL: Unremarkable. No obstruction. No gross mural thickening. APPENDIX: No evidence of appendicitis. PERITONEUM: Unremarkable. No free fluid. No free air. LYMPH NODES: Unremarkable. No enlarged lymph nodes. BLADDER: Unremarkable. REPRODUCTIVE: Unremarkable. BONES: No acute fractu re. OTHER FINDINGS: None. IMPRESSION: Bilateral nonobstructing renal calculi. The largest calculus measures 3 millimeter at the lower pole of the right kidney. No evidence of hydronephrosis. Progress Note: CT abd/pel and XR LS spine ordered. Patient treated with Lidoca ine, Valium, Morphine and Lidoderm patch. Blood and urine collected and sent to the lab for analysis. On evaluation patient sts her pain is not better. UA with microhematuria. CT of abd/pelvis ordered to r/o renal colic. Lidocaine IV started. CT is negative for hydronephrosis or ureterolithiasis. On re- evaluation patient still in severe pain and is unable to ambulate secondary to pain. Case was d/w who covers for pt's PMD . Patient was accepted to [place] for observation and pain control. Disposition - Disposition Disposition: HOSPITALIZED Disposition Time: 17:56 Condition: FAIR - Clinical Impression Clinical Impression: Intractable low back pain - PA / ZOO DIRECTOR / Resident Statement MD/DO has reviewed & agrees with the documentation as recorded. - Scribe Statement The provider has reviewed the documentation as recorded by the Scribe Susannah Meek All medical record entries made by the Octaviaibsixto were at my direction and personally dictated by me. I have reviewed the chart and agree that the record accurately reflects my personal performance of the history, physical exam, medical decision making, and the department course for this patient. I have also personally directed, reviewed, and agree with the discharge instructions and disposition. Decision To Admit - Pt Status Changed To: Hospital Disposition Of: Observation - . Bed Request Type: Regular Admitting Physician: Irma Haines Patient Diagnosis: Intractable low back pain
--- NOTE | 2018-10-14 17:03 | CT ---
Date of service: 10/14/2018 PROCEDURE: CT Abdomen and Pelvis without intravenous contrast HISTORY: right back/flank pain COMPARISON: Comparison is made with 09/21/2015 TECHNIQUE: Axial and reformatted coronal and sagittal CT images of the abdomen and pelvis were obtained without IV or oral contrast administration.. Contrast dose: 0 Radiation dose: Total exam DLP = 321.32 mGy-cm. This CT exam was performed using one or more of the following dose reduction techniques: Automated exposure control, adjustment of the mA and/or kV according to patient size, and/or use of iterative reconstruction technique. FINDINGS: LOWER THORAX: Unremarkable. LIVER: Unremarkable. No gross lesion or ductal dilatation. GALLBLADDER AND BILE DUCTS: Unremarkable. PANCREAS: Unremarkable. No gross lesion or ductal dilatation. SPLEEN: Unremarkable. ADRENALS: Unremarkable. No mass. KIDNEYS AND URETERS: There is 3 millimeter nonobstructing calculus at the lower pole of the right kidney. There is punctate less than 2 millimeter nonobstructing calculus at the upper pole of the right kidney. There is 2 millimeter nonobstructing calculus at the upper pole of the left kidney. No evidence of hydronephrosis or hydroureter. VASCULATURE: Unremarkable. No aortic aneurysm. Foci of atherosclerotic calcification noted in the abdominal aorta and iliac arteries. BOWEL: Unremarkable. No obstruction. No gross mural thickening. APPENDIX: No evidence of appendicitis. PERITONEUM: Unremarkable. No free fluid. No free air. LYMPH NODES: Unremarkable. No enlarged lymph nodes. BLADDER: Unremarkable. REPRODUCTIVE: Unremarkable. BONES: No acute fracture. OTHER FINDINGS: None. IMPRESSION: Bilateral nonobstructing renal calculi. The largest calculus measures 3 millimeter at the lower pole of the right kidney. No evidence of hydronephrosis.
[2018-10-14] MEDS: Morphine 4 MG/ML VIAL SC PRN (23:33)
[2018-10-15 02:52] VITALS: RESP 20
[2018-10-15] MEDS: Morphine 4 MG/ML VIAL SC PRN ×4 (03:53→22:00)
[2018-10-15] MEDS: Pantoprazole 40 mg EC Tab PO SCH (10:01)
[2018-10-15] MEDS: Lidocaine 5% Patch TD SCH (10:01)
[2018-10-15] MEDS: Enoxaparin 40 mg Syringe SC SCH (10:01)
--- NOTE | 2018-10-15 12:24 | CP.PCM.PN ---
Subjective - Date & Time of Evaluation Date of Evaluation: 10/15/18 Time of Evaluation: 12:23 - Subjective Subjective: 53 year old female with a past medial history of nephrolithiasis, hypercholesterolemia and bronchitis comes into the hospital after reporting right lower back pain for the past one day. Patient reports going to physical therapy for her knee 2 days prior to the back pain. She states the exercises they did that day were more intense than usual. Patient denies lifting any heavy things prior to the back pain. Patient describes the pain as throbbing in nature with no radiation. Patient denies taking any medications for the pain. Patient denies any urinary incontinence, chest pain, headaches, dizziness, fevers, chills, syncopal episodes, or any other complaints. Medical history: nephrolithiasis, hypercholesterolemia, bronchitis Surgical history: Endoscopy Allergies: Azithromycin, ibuprofen Social history: Tobacco use. Denies alcohol use. Denies illicit drug use. Objective - Vital Signs/Intake and Output Vital Signs (last 24 hours): Temp Pulse Resp BP Pulse Ox 98.3 F 63 20 149/81 96 10/15/18 07:00 10/15/18 07:00 10/15/18 07:00 10/15/18 07:00 10/15/18 07:00 - Medications Medications: Current Medications Acetaminophen (Tylenol 325mg Tab) 650 mg PO Q6 PRN PRN Reason: pain/fever Enoxaparin Sodium (Lovenox) 40 mg SC DAILY [facility] Last Admin: 10/15/18 10:01 Dose: 40 mg Lidocaine (Lidoderm) 1 ea TD DAILY [facility] Last Admin: 10/15/18 10:01 Dose: 1 ea Morphine Sulfate (Morphine) 4 mg SC Q4 PRN PRN Reason: Pain, Mild (1-3) Last Admin: 10/15/18 08:33 Dose: 4 mg Pantoprazole Sodium (Protonix Ec Tab) 40 mg PO DAILY [facility] Last Admin: 10/15/18 10:01 Dose: 40 mg - Labs Labs: 10/14/18 16:03 10/14/18 16:03 - Head Exam Head Exam: ATRAUMATIC, NORMAL INSPECTION - Eye Exam Eye Exam: EOMI, Normal appearance, PERRL Pupil Exam: NORMAL ACCOMODATION - ENT Exam ENT Exam: Mucous Membranes Moist, Normal Oropharynx - Respiratory Exam Respiratory Exam: Clear to Ausculation Bilateral, NORMAL BREATHING PATTERN. absent: Prolonged Expiratory Phase, Respiratory Distress - Cardiovascular Exam Cardiovascular Exam: REGULAR RHYTHM, +S1, +S2 - GI/Abdominal Exam GI & Abdominal Exam: Soft, Normal Bowel Sounds. absent: Rigid, Hyperactive Bowel Sounds - Extremities Exam Extremities Exam: Full ROM, Normal Inspection. absent: Pedal Edema - Back Exam Back Exam: NORMAL INSPECTION. absent: CVA tenderness (R), paraspinal tenderness - Neurological Exam Neurological Exam: Alert, Awake, CN II-XII Intact, Oriented x3 - Psychiatric Exam Psychiatric exam: Normal Affect, Normal Mood. absent: Depressed - Skin Skin Exam: Dry, Intact, Normal Color Assessment and Plan - Assessment and Plan (Free Text) Assessment: 53 year old female with a past medial history of nephrolithiasis, hypercholesterolemia and bronchitis comes into the hospital after reporting right lower back pain for the past one day and admitted for intractable back pain. Plan: Intractable back pain Lumbar xray:Mild spondylosis.[id number] narrowing of the intervertebral disc is space at L5-S1. Abdomen/pelvis ct:Bilateral nonobstructing renal calculi. The largest calculus measures 3 millimeter at the lower pole of the right kidney. No evidence of hydronephrosis. Neurology Dr. Colbert consulted--> Help appreciated Medications: Flexeril 10mg PO BID DEBBY Lidocaine 1 ea TD DAILY Morphine 4mg SC Q4 PRN PPX Protonix Lovenox Plan discussed with Attending Dr. Clarence Chaney, PGY-2
--- NOTE | 2018-10-15 19:42 | CP.PCM.HP ---
History of Present Illness - History of Present Illness History of Present Illness: 53 year old female with a past medial history of nephrolithiasis, hypercholesterolemia and bronchitis comes into the hospital after reporting right lower back pain for the past one day. Patient reports going to physical therapy for her knee 2 days prior to the back pain. She states the exercises they did that day were more intense than usual. Patient denies lifting any heavy things prior to the back pain. Patient describes the pain as throbbing in nature with no radiation. Patient denies taking any medications for the pain. Patient denies any urinary incontinence, chest pain, headaches, dizziness, fevers, chills, syncopal episodes, or any other complaints. Medical history: nephrolithiasis, hypercholesterolemia, bronchitis Surgical history: Endoscopy Allergies: Azithromycin, ibuprofen Social history: Tobacco use. Denies alcohol use. Denies illicit drug use. Present on Admission - Present on Admission Any Indicators Present on Admission: No Past Patient History - Infectious Disease Hx of Infectious Diseases: None - Past Medical History & Family History Past Medical History?: Yes - Past Social History Smoking Status: Light Smoker < 10 Cigarettes Daily - CARDIAC Hx Hypercholesterolemia: Yes - PULMONARY Hx Bronchitis: Yes - NEUROLOGICAL Hx Neurological Disorder: Yes Hx Dizziness: Yes - RENAL Hx Chronic Kidney Disease: Yes Hx Kidney Stones: Yes - MUSCULOSKELETAL/RHEUMATOLOGICAL Hx Falls: No Other/Comment: Bursitis - GASTROINTESTINAL Hx Gastrointestinal Disorders: Yes Hx Fatty Liver Disease: Yes - PSYCHIATRIC Hx Substance Use: No - SURGICAL HISTORY Hx Surgeries: Yes - ANESTHESIA Hx Anesthesia: Yes Hx Anesthesia Reactions: No Hx Malignant Hyperthermia: No Meds Home Medications: Home Medication List Medication Instructions Recorded Confirmed Type Diclofenac Sodium 100 mg PO BID #60 tablet. 10/18/18 Rx Allergies/Adverse Reactions: Allergies Allergy/AdvReac Type Severity Reaction Status Date / Time azithromycin [From Zithromax] Allergy RASH Verified 10/14/18 13:05 ibuprofen AdvReac RASH Verified 10/14/18 13:05 Physical Exam - Constitutional Appears: Well - Head Exam Head Exam: ATRAUMATIC, NORMAL INSPECTION, NORMOCEPHALIC - Eye Exam Eye Exam: EOMI, Normal appearance, PERRL Pupil Exam: NORMAL ACCOMODATION, PERRL - ENT Exam ENT Exam: Mucous Membranes Moist, Normal Exam - Neck Exam Neck exam: Positive for: Normal Inspection - Respiratory Exam Respiratory Exam: Decreased Breath Sounds - Cardiovascular Exam Cardiovascular Exam: REGULAR RHYTHM, +S1, +S2 - GI/Abdominal Exam GI & Abdominal Exam: Diminished Bowel Sounds, Soft - Rectal Exam Rectal Exam: Deferred - Neurological Exam Neurological exam: Oriented x3 Results - Vital Signs Recent Vital Signs: Last Vital Signs Temp 97.9 F 10/15/18 15:13 Pulse 64 10/15/18 15:13 Resp 20 10/15/18 15:13 BP 97/52 L 10/15/18 15:13 Pulse Ox 99 10/15/18 15:13 - Labs Result Diagrams: 10/18/18 08:08 10/18/18 08:08 Assessment & Plan - Assessment and Plan (Free Text) Plan: 53 year old female with a past medial history of nephrolithiasis, hypercholesterolemia and bronchitis comes into the hospital after reporting right lower back pain for the past one day and admitted for intractable back pain. Plan: Intractable back pain Lumbar xray:Mild spondylosis.[id number]-[id number]-otlspfrw narrowing of the intervertebral disc is space at L5-S1. Abdomen/pelvis ct:Bilateral nonobstructing renal calculi. The largest calculus measures 3 millimeter at the lower pole of the right kidney. No evidence of hydronephrosis. Neurology Dr. Colbert consulted--> Help appreciated Medications: Flexeril 10mg PO BID DEBBY Lidocaine 1 ea TD DAILY Morphine 4mg SC Q4 PRN PPX Protonix Lovenox
[2018-10-16] MEDS: Morphine 4 MG/ML VIAL SC PRN ×3 (04:50→19:56)
--- NOTE | 2018-10-16 10:20 | CP.PCM.PN ---
Subjective - Date & Time of Evaluation Date of Evaluation: 10/16/18 Time of Evaluation: 10:20 - Subjective Subjective: PGY-[address] King's Service Patient seen and examined at bedside. Per nursing no acute events overnight. Patient denies any fevers, chills, abdominal pain, chest pain, syncopal episodes, or any other complaints. Objective - Vital Signs/Intake and Output Vital Signs (last 24 hours): Temp Pulse Resp BP Pulse Ox 98.2 F 71 20 104/58 L 97 10/16/18 07:00 10/16/18 07:00 10/16/18 07:00 10/16/18 07:00 10/16/18 08:25 - Medications Medications: Current Medications Acetaminophen (Tylenol 325mg Tab) 650 mg PO Q6 PRN PRN Reason: pain/fever Cyclobenzaprine HCl (Flexeril) 10 mg PO BID [facility] Last Admin: 10/15/18 17:52 Dose: 10 mg Enoxaparin Sodium (Lovenox) 40 mg SC DAILY [facility] Last Admin: 10/15/18 10:01 Dose: 40 mg Lidocaine (Lidoderm) 1 ea TD DAILY [facility] Last Admin: 10/15/18 10:01 Dose: 1 ea Morphine Sulfate (Morphine) 4 mg SC Q4 PRN PRN Reason: Pain, Mild (1-3) Last Admin: 10/16/18 04:50 Dose: 4 mg Pantoprazole Sodium (Protonix Ec Tab) 40 mg PO DAILY [facility] Last Admin: 10/15/18 10:01 Dose: 40 mg - Labs Labs: 10/14/18 16:03 10/14/18 16:03 - Head Exam Head Exam: ATRAUMATIC, NORMAL INSPECTION - Eye Exam Eye Exam: EOMI, Normal appearance, PERRL Pupil Exam: NORMAL ACCOMODATION, PERRL. absent: Irregular, Unequal - ENT Exam ENT Exam: Mucous Membranes Moist, Normal Oropharynx - Respiratory Exam Respiratory Exam: Clear to Ausculation Bilateral, NORMAL BREATHING PATTERN. absent: Prolonged Expiratory Phase, Respiratory Distress - Cardiovascular Exam Cardiovascular Exam: REGULAR RHYTHM, +S1, +S2 - GI/Abdominal Exam GI & Abdominal Exam: Soft, Normal Bowel Sounds. absent: Rigid, Hyperactive Bowel Sounds - Extremities Exam Extremities Exam: Full ROM, Normal Inspection. absent: Joint Swelling, Pedal Edema - Back Exam Back Exam: NORMAL INSPECTION. absent: CVA tenderness (R), paraspinal tenderness - Neurological Exam Neurological Exam: Alert, Awake, CN II-XII Intact, Oriented x3 - Psychiatric Exam Psychiatric exam: Normal Affect, Normal Mood. absent: Depressed - Skin Skin Exam: Dry, Intact, Normal Color Assessment and Plan - Assessment and Plan (Free Text) Plan: 53 year old female with a past medial history of nephrolithiasis, hyperc holesterolemia and bronchitis comes into the hospital after reporting right lower back pain for the past one day and admitted for intractable back pain. Plan: Intractable back pain Lumbar xray:Mild spondylosis.Hxej-dq-knkeckol narrowing of the intervertebral disc is space at L5-S1. Abdomen/pelvis ct:Bilateral nonobstructing renal calculi. The largest calculus measures 3 millimeter at the lower pole of the right kidney. No evidence of hydronephrosis. Neurology Dr. Colbert consulted--> Help appreciated :Awaiting further rec's Medications: Tylenol 650mg PO Q6 PRN Flexeril 10mg PO TID DEBBY Lidocaine 1 ea TD DAILY Morphine 4mg SC Q4 PRN PPX Protonix Lovenox Dispo: Awaiting further rec's from Dr. Colbert. Plan discussed with Attending Dr. Clarence Chaney, PGY-2
[2018-10-16] MEDS: Enoxaparin 40 mg Syringe SC SCH (10:41)
[2018-10-16] MEDS: Lidocaine 5% Patch TD SCH (10:41)
[2018-10-16] MEDS: Pantoprazole 40 mg EC Tab PO SCH (10:43)
--- NOTE | 2018-10-16 19:20 | CP.PCM.PN ---
Subjective - Date & Time of Evaluation Date of Evaluation: 10/16/18 Time of Evaluation: 19:00 - Subjective Subjective: patient examined today no nausea no vomiting no dizziness no diarrhea no fever no shortness of breath Patient seen and examined at bedside. Per nursing no acute events overnight. Patient denies any fevers, chills, abdominal pain, chest pain, syncopal episodes, or any other complaints. Objective - Vital Signs/Intake and Output Vital Signs (last 24 hours): Temp Pulse Resp BP Pulse Ox 97.9 F 98 H 20 101/50 L 97 10/16/18 15:00 10/16/18 15:00 10/16/18 15:00 10/16/18 15:00 10/16/18 16:00 - Medications Medications: Current Medications Acetaminophen (Tylenol 325mg Tab) 650 mg PO Q6 PRN PRN Reason: pain/fever Cyclobenzaprine HCl (Flexeril) 10 mg PO TID [facility] Last Admin: 10/16/18 17:18 Dose: 10 mg Enoxaparin Sodium (Lovenox) 40 mg SC DAILY [facility] Last Admin: 10/16/18 10:41 Dose: 40 mg Lidocaine (Lidoderm) 1 ea TD DAILY [facility] Last Admin: 10/16/18 10:41 Dose: 1 ea Morphine Sulfate (Morphine) 4 mg SC Q4 PRN PRN Reason: Pain, Mild (1-3) Last Admin: 10/16/18 13:47 Dose: 4 mg Pantoprazole Sodium (Protonix Ec Tab) 40 mg PO DAILY [facility] Last Admin: 10/16/18 10:43 Dose: 40 mg - Labs Labs: 10/14/18 16:03 10/14/18 16:03 - Constitutional Appears: Well - Head Exam Head Exam: ATRAUMATIC, NORMAL INSPECTION, NORMOCEPHALIC - Eye Exam Eye Exam: EOMI, Normal appearance, PERRL Pupil Exam: NORMAL ACCOMODATION, PERRL - ENT Exam ENT Exam: Mucous Membranes Moist, Normal Exam - Neck Exam Neck Exam: Full ROM, Normal Inspection. absent: Lymphadenopathy - Respiratory Exam Respiratory Exam: Decreased Breath Sounds - Cardiovascular Exam Cardiovascular Exam: REGULAR RHYTHM, +S1, +S2 - GI/Abdominal Exam GI & Abdominal Exam: Soft, Diminished Bowel Sounds - Rectal Exam Rectal Exam: Deferred - Neurological Exam Neurological Exam: Oriented x3 Assessment and Plan (1) Allergic urticaria Status: Acute (2) Arthralgia of knee Status: Acute (3) Back strain Status: Acute (4) Intractable low back pain Status: Acute - Assessment and Plan (Free Text) Plan: medications reviewed flexeril lidoderm lovenox morphine protonix ec tab tylenol labs and vitals reviewed moderate complexity of care plan discussed with patient and family 53 year old female with a past medial history of nephrolithiasis, hypercholesterolemia and bronchitis comes into the hospital after reporting right lower back pain for the past one day and admitted for intractable back pain. Plan: Intractable back pain Lumbar xray:Mild spondylosis.Xmwr-pi-stakasph narrowing of the intervertebral disc is space at L5-S1. Abdomen/pelvis ct:Bilateral nonobstructing renal calculi. The largest calculus measures 3 millimeter at the lower pole of the right kidney. No evidence of hydronephrosis. Neurology Dr. Colbert consulted--> Help appreciated :Awaiting further rec's Medications: Tylenol 650mg PO Q6 PRN Flexeril 10mg PO TID DEBBY Lidocaine 1 ea TD DAILY Morphine 4mg SC Q4 PRN PPX Protonix Lovenox Dispo: Awaiting further rec's from Dr. Colbert.
[2018-10-17] MEDS: Morphine 4 MG/ML VIAL SC PRN ×2 (02:30→10:55)
--- NOTE | 2018-10-17 07:07 | CP.PCM.CON ---
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 Past Patient History - Infectious Disease Hx of Infectious Diseases: None - Past Medical History & Family History Past Medical History?: Yes - Past Social History Smoking Status: Light Smoker < 10 Cigarettes Daily - CARDIAC Hx Hypercholesterolemia: Yes - PULMONARY Hx Bronchitis: Yes - NEUROLOGICAL Hx Neurological Disorder: Yes Hx Dizziness: Yes - RENAL Hx Chronic Kidney Disease: Yes Hx Kidney Stones: Yes - MUSCULOSKELETAL/RHEUMATOLOGICAL Hx Falls: No Other/Comment: Bursitis - GASTROINTESTINAL Hx Gastrointestinal Disorders: Yes Hx Fatty Liver Disease: Yes - PSYCHIATRIC Hx Substance Use: No - SURGICAL HISTORY Hx Surgeries: Yes - ANESTHESIA Hx Anesthesia: Yes Hx Anesthesia Reactions: No Hx Malignant Hyperthermia: No Meds Allergies/Adverse Reactions: Allergies Allergy/AdvReac Type Severity Reaction Status Date / Time azithromycin [From Zithromax] Allergy RASH Verified 10/14/18 13:05 ibuprofen AdvReac RASH Verified 10/14/18 13:05 - Medications Medications: Current Medications Acetaminophen (Tylenol 325mg Tab) 650 mg PO Q6 PRN PRN Reason: pain/fever Cyclobenzaprine HCl (Flexeril) 10 mg PO TID [facility] Last Admin: 10/16/18 17:18 Dose: 10 mg Enoxaparin Sodium (Lovenox) 40 mg SC DAILY [facility] Last Admin: 10/16/18 10:41 Dose: 40 mg Lidocaine (Lidoderm) 1 ea TD DAILY [facility] Last Admin: 10/16/18 10:41 Dose: 1 ea Lorazepam (Ativan) 0.5 mg IVP ONCE PRN PRN Reason: Anxiety Morphine Sulfate (Morphine) 4 mg SC Q4 PRN PRN Reason: Pain, Mild (1-3) Last Admin: 10/17/18 02:30 Dose: 4 mg Pantoprazole Sodium (Protonix Ec Tab) 40 mg PO DAILY [facility] Last Admin: 10/16/18 10:43 Dose: 40 mg Results - Vital Signs Recent Vital Signs: Last Vital Signs Temp 98 F 10/16/18 23:00 Pulse 76 10/17/18 02:25 Resp 20 10/17/18 02:25 BP 105/68 10/17/18 02:25 Pulse Ox 96 10/16/18 23:00 - Labs Result Diagrams: 10/14/18 16:03 10/14/18 16:03
--- NOTE | 2018-10-17 07:26 | CP.PCM.PN ---
Subjective - Date & Time of Evaluation Date of Evaluation: 10/17/18 Time of Evaluation: 07:26 - Subjective Subjective: Progress note for Dr. Preston Haines Patient was seen and examined at bedside in no acute distress. She reports still having back pain that radiates down her right leg (to her knee). She is able to walk, denies numbness and tingling, denies loss of bowel. She also denies chest pain, palpitations, dyspnea, cough, n/v, fevers, headaches, abdominal pain. No acute events overnight. Objective - Vital Signs/Intake and Output Vital Signs (last 24 hours): Temp Pulse Resp BP Pulse Ox 98 F 76 20 105/68 96 10/16/18 23:00 10/17/18 02:25 10/17/18 02:25 10/17/18 02:25 10/16/18 23:00 Intake and Output: 10/17/18 10/17/18 06:59 18:59 Intake Total 500 Balance 500 - Medications Medications: Current Medications Acetaminophen (Tylenol 325mg Tab) 650 mg PO Q6 PRN PRN Reason: pain/fever Cyclobenzaprine HCl (Flexeril) 10 mg PO TID [facility] Last Admin: 10/16/18 17:18 Dose: 10 mg Docusate Sodium (Colace) 100 mg PO BID [facility] Enoxaparin Sodium (Lovenox) 40 mg SC DAILY [facility] Last Admin: 10/16/18 10:41 Dose: 40 mg Lidocaine (Lidoderm) 1 ea TD DAILY [facility] Last Admin: 10/16/18 10:41 Dose: 1 ea Lidocaine (Lidoderm) 1 ea TD DAILY [facility] Lorazepam (Ativan) 0.5 mg IVP ONCE PRN PRN Reason: Anxiety Morphine Sulfate (Morphine) 4 mg SC Q4 PRN PRN Reason: Pain, Mild (1-3) Last Admin: 10/17/18 02:30 Dose: 4 mg Pantoprazole Sodium (Protonix Ec Tab) 40 mg PO DAILY [facility] Last Admin: 10/16/18 10:43 Dose: 40 mg - Labs Labs: 10/14/18 16:03 10/14/18 16:03 - Constitutional Appears: No Acute Distress - Head Exam Head Exam: ATRAUMATIC, NORMAL INSPECTION - Eye Exam Eye Exam: EOMI - ENT Exam ENT Exam: Mucous Membranes Moist - Respiratory Exam Respiratory Exam: Clear to Ausculation Bilateral, NORMAL BREATHING PATTERN. absent: Rales, Rhonchi, Wheezes, Respiratory Distress - Cardiovascular Exam Cardiovascular Exam: REGULAR RHYTHM, +S1, +S2 - GI/Abdominal Exam GI & Abdominal Exam: Soft, Normal Bowel Sounds. absent: Distended, Firm, Tenderness - Extremities Exam Extremities Exam: Normal Inspection. absent: Pedal Edema, Tenderness - Back Exam Back Exam: paraspinal tenderness (R>L). absent: rash noted Additional comments: Lidocaine patch on right lower back - Neurological Exam Neurological Exam: Alert, Awake, Oriented x3 - Psychiatric Exam Psychiatric exam: Normal Affect, Normal Mood - Skin Skin Exam: Dry, Normal Color, Warm Assessment and Plan - Assessment and Plan (Free Text) Plan: 53 year old female with a past medial history of nephrolithiasis, hypercholesterolemia and bronchitis comes into the hospital after reporting right lower back pain for the past one day and admitted for intractable back p ain. Intractable back pain - Lumbar xray:Mild spondylosis.Gcxk-cc-kejnsied narrowing of the intervertebral disc is space at L5-S1. - Abd/pelvis CT:B/L nonobstructing renal calculi; largest calculus measures 3 millimeter at the lower pole of the right kidney. No evidence of hydronephrosis. - Neurology Dr. Colbert consulted; help appreciated * Ordered MRI of the Lspine: f/u * Odered Vit B12, A1c, Thyroid profile, ESR, ANAND, Lyme, immunofixation * Encouraged PT, softners, and to avoid narcotics - Medications: * Tylenol 650mg PO Q6 PRN * Flexeril 10mg PO TID DEBBY * Lidocaine 1 ea TD DAILY * Morphine 4mg SC Q4 PRN Prophylaxis GI: Protonix DVT: Lovenox PT/OT Case discussed with Dr. Clarence Haines, Sumi Varela, PGY2
[2018-10-17 08:12] LABS: BASO % 0.5 % (0.0-2.0); EOS # 0.2 K/uL (0.0-0.7); EOS % 4.4 % (0.0-4.0); HEMOGLOBIN 12.7 g/dL (11.0-16.0); LYMPH # 1.8 K/uL (1.0-4.3); MEAN CELL VOLUME 93.6 fL (81.0-99.0); MEAN CORPUSCULAR HGB CONC 34.1 g/dL (33.0-37.0); MEAN PLATELET VOLUME 7.4 fL (7.2-11.7); MONO # 0.4 K/uL (0.0-0.8); MONO % 8.2 % (0.0-10.0); NEUT # 2.2 K/uL (1.8-7.0); NEUT % 47.9 % (50.0-75.0); NRBC % 0.1 % (0.0-2.0); RBC 3.97 Mil/uL (3.80-5.20); RED CELL DISTRIBUTION WIDTH 13.8 % (11.5-14.5); WHITE BLOOD COUNT 4.6 K/uL (4.8-10.8)
[2018-10-17 08:29] LABS: FREE T4 1.06 ng/dL (0.78-2.19)
[2018-10-17 08:38] LABS: ALB/GLOB RATIO 1.3 (1.0-2.1); ALBUMIN 3.9 g/dL (3.5-5.0); ALT/SGPT 19 U/L (9-52); AST/SGOT 20 U/L (14-36); BLOOD UREA NITROGEN 20 mg/dL (7-17); CALCIUM 9.3 mg/dl (8.6-10.4); GFR NON-AFRICAN AMERICAN > 60
[2018-10-17] MEDS: Pantoprazole 40 mg EC Tab PO SCH (10:17)
[2018-10-17] MEDS: Enoxaparin 40 mg Syringe SC SCH (10:18)
[2018-10-17] MEDS: Lidocaine 5% Patch TD SCH ×2 (10:18→10:56)
--- NOTE | 2018-10-17 16:41 | MRI ---
Date of service: 10/17/2018 PROCEDURE: MR LUMBAR SPINE WITHOUT CONTRAST HISTORY: Narrowing of L5-S1 COMPARISON: Plain radiographs from 10/14/2018 TECHNIQUE: Multiecho multiplanar sequences were performed through the lumbar spine without the use of intravenous contrast. FINDINGS: There is normal alignment of the lumbar vertebral bodies. There is straightening of the lumbar spine with loss of normal lumbar lordosis. There is no acute fracture or spondylolysis. Bone marrow signal is within normal limits. The conus medullaris terminates at a normal level and the nerve roots of cauda equina are normal. There is multilevel disc degeneration with loss of T2 signal. The disc heights are maintained T12-L1: No disc herniation, spinal canal stenosis or neural foraminal narrowing. L1-2: No disc herniation, spinal canal stenosis or neural foraminal narrowing. Moderate right and mild left facet arthropathy L2-3: No disc herniation, spinal canal stenosis or neural foraminal narrowing. Mild bilateral facet arthropathy. L3-4: No disc herniation, spinal canal stenosis or neural foraminal narrowing. Moderate bilateral facet arthropathy. L4-5: Diffuse posterior disc bulge indents the ventral thecal sac without central spinal canal stenosis. Also noted is a superimposed right foraminal and far lateral disc protrusion without neural compromise. Moderate bilateral facet arthropathy contribute to mild neural foraminal narrowing. L5-S1: Posterior disc bulge without central spinal canal stenosis. Severe bilateral facet arthropathy without neural foraminal narrowing OTHER FINDINGS: Paraspinous soft tissues are normal. Imaged portion of the retroperitoneum is within normal limits. IMPRESSION: No acute fracture, spondylolysis or spondylolisthesis. Mild multilevel degenerative disc disease worse at L4-5 with a diffuse posterior disc bulge and superimposed right foraminal and far lateral disc protrusion without neural compromise. Moderate bilateral facet arthropathy contribute to mild neural foraminal narrowing.
--- NOTE | 2018-10-17 21:03 | CP.PCM.PN ---
Subjective - Date & Time of Evaluation Date of Evaluation: 10/17/18 Time of Evaluation: 09:30 - Subjective Subjective: patient examined today no nausea no vomiting no dizziness no diarrhea no fever no shortness of breath Patient was seen and examined at bedside in no acute distress. She reports still having back pain that radiates down her right leg (to her knee). She is able to walk, denies numbness and tingling, denies loss of bowel. She also denies chest pain, palpitations, dyspnea, cough, n/v, fevers, headaches, abdominal pain. No acute events overnight. Objective - Vital Signs/Intake and Output Vital Signs (last 24 hours): Temp Pulse Resp BP Pulse Ox 98.4 F 75 20 93/54 L 96 10/17/18 15:20 10/17/18 15:20 10/17/18 15:20 10/17/18 15:20 10/17/18 15:20 - Medications Medications: Current Medications Acetaminophen (Tylenol 325mg Tab) 650 mg PO Q6 PRN PRN Reason: pain/fever Cyclobenzaprine HCl (Flexeril) 10 mg PO TID [facility] Last Admin: 10/17/18 18:07 Dose: 10 mg Docusate Sodium (Colace) 100 mg PO BID [facility] Last Admin: 10/17/18 18:06 Dose: 100 mg Enoxaparin Sodium (Lovenox) 40 mg SC DAILY [facility] Last Admin: 10/17/18 10:18 Dose: 40 mg Lidocaine (Lidoderm) 1 ea TD DAILY [facility] Last Admin: 10/17/18 10:18 Dose: 1 ea Lidocaine (Lidoderm) 1 ea TD DAILY [facility] Last Admin: 10/17/18 10:56 Dose: 1 ea Lorazepam (Ativan) 0.5 mg IVP ONCE PRN PRN Reason: Anxiety Last Admin: 10/17/18 15:29 Dose: 0.5 mg Morphine Sulfate (Morphine) 4 mg SC Q4 PRN PRN Reason: Pain, Mild (1-3) Last Admin: 10/17/18 10:55 Dose: 4 mg Pantoprazole Sodium (Protonix Ec Tab) 40 mg PO DAILY [facility] Last Admin: 10/17/18 10:17 Dose: 40 mg - Labs Labs: 10/17/18 07:40 10/17/18 07:40 - Constitutional Appears: Well - Head Exam Head Exam: ATRAUMATIC, NORMAL INSPECTION, NORMOCEPHALIC - Eye Exam Eye Exam: EOMI, Normal appearance, PERRL Pupil Exam: NORMAL ACCOMODATION, PERRL - ENT Exam ENT Exam: Mucous Membranes Moist, Normal Exam - Neck Exam Neck Exam: Full ROM, Normal Inspection. absent: Lymphadenopathy - Respiratory Exam Respiratory Exam: Decreased Breath Sounds - Cardiovascular Exam Cardiovascular Exam: REGULAR RHYTHM, +S1, +S2 - GI/Abdominal Exam GI & Abdominal Exam: Soft, Diminished Bowel Sounds - Rectal Exam Rectal Exam: Deferred - Neurological Exam Neurological Exam: Oriented x3 Assessment and Plan - Assessment and Plan (Free Text) Plan: medications reviewed flexeril lidoderm lovenox ativan colace morphine protonix ec tab tylenol labs and vitals reviewed moderate complexity of care plan discussed with patient and family mri followup discharge once mri reort ajith pulliam same
--- NOTE | 2018-10-18 06:54 | CON ---
DATE: 10/17/2018 ATTENDING PHYSICIAN: Concepcion Haines MD LOCATION: The patient's room number 652, bed A. REASON FOR CONSULTATION: Back pain. CHIEF COMPLAINT: The patient was brought into [facility] with a history of severe lower back pain. From neurological point of view, I was called in to evaluate her for further management. 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 The pain was slowly started, and it got intensified. She is also getting physical therapy for her left knee injuries and right shoulder problem. This pain is 10/10 in pain scale, at present 7/10, not radicular in nature, not associated with tingling, numbness, or bowel or bladder incontinence. No single episode happened in the past. No history of fall. No history of injury. PAST MEDICAL HISTORY: Bronchitis, dyslipidemia, renal stone, and chronic kidney disease. PERSONAL HISTORY: She smokes. No history of alcohol use. ALLERGIES: ALLERGIES TO AZITHROMYCIN AND IBUPROFEN. PHYSICAL EXAMINATION: NECK: Supple. No carotid bruit. HEART: Heart sounds are regular. CHEST: Fair air entry. EXTREMITIES: No edema in legs. NEUROLOGIC EXAMINATION: Mental status examination: She is awake, alert, and oriented to person, place, and time. Speech is clear. Naming, repetition, fluency, comprehension all within normal. Cranial nerve examination: Visual field intact. Pupils are reactive. Extraocular movement normal. No nystagmus. No facial sensory deficit. No facial asymmetry. Hearing is normal. Tongue is midline. Good gag. Motor examination: An outstretched hand with eyes closed. No drift noted. Power is symmetric on either side. Deep tendon reflexes biceps, brachialis, triceps 2+ on either side, both knees are 2+, both ankles are 2+, plantars are downgoing. Straight leg raising test positive on the right side above 40 degrees. Spinal tenderness also noted over lumbosacral region. Coordination: Finger-nose test is intact. Sensory examination: No dermatomal sensory loss. Gait: Deferred at this time. CONCLUSION: On reviewing her history from the documentation as well as from her symptoms and signs related to her lumbar pathology, it could be from diskitis associated. Her symptoms on examination has been proven radiculopathy or plexopathy. HER WORKUP: WBC 8.2, hemoglobin 14, hematocrit 42, platelet 275. Sodium 143, potassium 3.7, chloride 106, bicarbonate 25, BUN 13, creatinine 0.9, GFR more than 60. Urinalysis shows 2+ hematuria, urobilinogen. An x-ray of the lumbosacral spine show lumbosacral disk disease. RECOMMENDATION: 1. MRI of the lumbosacral spine to rule out any diskitis versus fascitis. 2. Pain management as well as possible avoid narcotics. 3. Stool softeners and encouraging her p.o. fluids. If the patient is stable for the next 24-hour period, the patient can be discharged and should be followed as outpatient. Colt Colbert MD [email or web address]
[2018-10-18 07:54] VITALS: BP 96/67; PULSE 85; TEMP 97.7; O2SAT 98
[2018-10-18 08:17] LABS: BASO % 0.6 % (0.0-2.0); EOS # 0.2 K/uL (0.0-0.7); EOS % 4.8 % (0.0-4.0); HEMOGLOBIN 13.1 g/dL (11.0-16.0); LYMPH # 1.6 K/uL (1.0-4.3); LYMPH % 33.7 % (20.0-40.0); MEAN CELL VOLUME 92.6 fL (81.0-99.0); MEAN CORPUSCULAR HEMOGLOBIN 31.9 pg (27.0-31.0); MEAN CORPUSCULAR HGB CONC 34.4 g/dL (33.0-37.0); MEAN PLATELET VOLUME 7.4 fL (7.2-11.7); MONO # 0.4 K/uL (0.0-0.8); MONO % 8.3 % (0.0-10.0); NEUT # 2.4 K/uL (1.8-7.0); NEUT % 52.6 % (50.0-75.0); RBC 4.1 Mil/uL (3.80-5.20); RED CELL DISTRIBUTION WIDTH 13.6 % (11.5-14.5); WHITE BLOOD COUNT 4.6 K/uL (4.8-10.8)
[2018-10-18 08:35] LABS: ALB/GLOB RATIO 1.3 (1.0-2.1); ALT/SGPT 17 U/L (9-52); AST/SGOT 20 U/L (14-36); BLOOD UREA NITROGEN 17 mg/dL (7-17); CALCIUM 9.7 mg/dl (8.6-10.4); GFR NON-AFRICAN AMERICAN > 60
[2018-10-18] MEDS: Enoxaparin 40 mg Syringe SC SCH (09:11)
[2018-10-18] MEDS: Pantoprazole 40 mg EC Tab PO SCH (09:11)
[2018-10-18] MEDS: Lidocaine 5% Patch TD SCH ×2 (09:12)
--- NOTE | 2018-10-18 09:12 | CP.PCM.DIS ---
Provider - Provider Date of Admission: 10/14/18 17:55 Attending physician: Concepcion Haines MD Consults: 10/15/18 06:20 Neurology Consult Routine Comment: c/o lower back pain. Consulting Provider: Colt Colbert Consulting Physician: Colt Colbert Reason for Consult: c/o lower back pain. Time Spent in preparation of Discharge (in minutes): 25 Hospital Course - Lab Results Lab Results: Most Recent Lab Values WBC 4.6 K/uL (4.8-10.8) L 10/18/18 08:08 RBC 4.10 Mil/uL (3.80-5.20) 10/18/18 08:08 Hgb 13.1 g/dL (11.0-16.0) 10/18/18 08:08 Hct 37.9 % (34.0-47.0) 10/18/18 08:08 MCV 92.6 fL (81.0-99.0) 10/18/18 08:08 MCH 31.9 pg (27.0-31.0) H 10/18/18 08:08 MCHC 34.4 g/dL (33.0-37.0) 10/18/18 08:08 RDW 13.6 % (11.5-14.5) 10/18/18 08:08 Plt Count 269 K/uL (130-400) 10/18/18 08:08 MPV 7.4 fL (7.2-11.7) 10/18/18 08:08 Neut % (Auto) 52.6 % (50.0-75.0) 10/18/18 08:08 Lymph % (Auto) 33.7 % (20.0-40.0) 10/18/18 08:08 [place] % (Auto) 8.3 % (0.0-10.0) 10/18/18 08:08 Eos % (Auto) 4.8 % (0.0-4.0) H 10/18/18 08:08 Baso % (Auto) 0.6 % (0.0-2.0) 10/18/18 08:08 Neut # (Auto) 2.4 K/uL (1.8-7.0) 10/18/18 08:08 Lymph # (Auto) 1.6 K/uL (1.0-4.3) 10/18/18 08:08 [place] # (Auto) 0.4 K/uL (0.0-0.8) 10/18/18 08:08 Eos # (Auto) 0.2 K/uL (0.0-0.7) 10/18/18 08:08 Baso # (Auto) 0.0 K/uL (0.0-0.2) 10/18/18 08:08 ESR 40 mm/hr (0-20) H 10/17/18 07:40 Sodium 141 mmol/L (132-148) 10/18/18 08:08 Potassium 3.8 mmol/L (3.6-5.2) 10/18/18 08:08 Chloride 106 mmol/L (98-107) 10/18/18 08:08 Carbon Dioxide 26 mmol/L (22-30) 10/18/18 08:08 Anion Gap 12 (10-20) 10/18/18 08:08 BUN 17 mg/dL (7-17) 10/18/18 08:08 Creatinine 0.8 mg/dL (0.7-1.2) 10/18/18 08:08 Est GFR ( Amer) > 60 10/18/18 08:08 Est GFR (Non-Af Amer) > 60 10/18/18 08:08 Random Glucose 94 mg/dL (65-105) 10/18/18 08:08 Hemoglobin A1c 5.8 % (4.2-6.5) 10/17/18 07:40 Calcium 9.7 mg/dl (8.6-10.4) 10/18/18 08:08 Phosphorus 3.8 mg/dL (2.5-4.5) 10/17/18 07:40 Magnesium 2.1 mg/dL (1.6-2.3) 10/17/18 07:40 Total Bilirubin 0.3 mg/dL (0.2-1.3) 10/18/18 08:08 AST 20 U/L (14-36) 10/18/18 08:08 ALT 17 U/L (9-52) 10/18/18 08:08 Alkaline Phosphatase 98 U/L (38-126) 10/18/18 08:08 Total Protein 7.0 g/dL (6.3-8.3) 10/18/18 08:08 Albumin 4.0 g/dL (3.5-5.0) 10/18/18 08:08 Globulin 3.0 gm/dL (2.2-3.9) 10/18/18 08:08 Albumin/Globulin Ratio 1.3 (1.0-2.1) 10/18/18 08:08 Lipase 26 U/L (23-300) 10/14/18 16:03 Vitamin B12 464 pg/mL (239-931) 10/17/18 07:40 Free T4 1.06 ng/dL (0.78-2.19) 10/17/18 07:40 TSH 3rd Generation 1.23 mIU/L (0.46-4.68) 10/17/18 07:40 Urine Color Yellow (YELLOW) 10/14/18 15:10 Urine Clarity Hazy (Clear) 10/14/18 15:10 Urine pH 7.0 (5.0-8.0) 10/14/18 15:10 Ur Specific [place] 1.015 (1.003-1.030) 10/14/18 15:10 Urine Protein Negative mg/dL (NEGATIVE) 10/14/18 15:10 Urine Glucose (UA) Normal mg/dL (Normal) 10/14/18 15:10 Urine Ketones Negative mg/dL (NEGATIVE) 10/14/18 15:10 Urine Blood 2+ (NEGATIVE) H 10/14/18 15:10 Urine Nitrate Negative (NEGATIVE) 10/14/18 15:10 Urine Bilirubin Negative (NEGATIVE) 10/14/18 15:10 Urine Urobilinogen 2.0 mg/dL (0.2-1.0) H 10/14/18 15:10 Ur Leukocyte Esterase Neg [place]/uL (Negative) 10/14/18 15:10 Urine WBC (Auto) 4 /hpf (0-5) 10/14/18 15:10 Urine RBC (Auto) 12 /hpf (0-3) H 10/14/18 15:10 Ur Squamous Epith Cells 2 /hpf (0-5) 10/14/18 15:10 Hyaline Casts 0-2 /lpf (0-2) 10/14/18 15:10 Rheumatoid Arth Interp Negative (NEGATIVE) 10/17/18 07:40 - Hospital Course Hospital Course: Fracture on MRI lumbosacral spinal report conveyed to the patient's Normal alignment of the lumbar vertebra Mild multilevel degenerative disc disease worse at L4-L5 diffuse posterior disc bulge superimposed right foraminal Discharge planning Patient advised to do the CAT scan as an outpatient for further work-up as patient continues to have a pain on the backside possible discharge it today patient understands and agrees to go home abdominal CT which revealed 3 mm calculus report given to the patient's Plan: 53 year old female with a past medial history of nephrolithiasis, hypercholesterolemia and bronchitis comes into the hospital after reporting right lower back pain for the past one day and admitted for intractable back pain. Degenerative Disc Disease, causing back pain - Lumbar xray:Mild spondylosis.[id number] narrowing of the intervertebral disc is space at L5-S1. - Abd/pelvis CT:B/L nonobstructing renal calculi; largest calculus measures 3 millimeter at the lower pole of the right kidney. No evidence of hydronephrosis. - Neurology Dr. Colbert consulted; help appreciated * MRI of the Lspine: multilevel degenerative disc disease worse at L4-5 w/diffuse posterior bulge and superimposed right foraminal and far lateral di sc protrusion w/o neural compromise; moderate b/l facet arthropathy contribute to mild neural foraminal narrowing. * Odered Vit B12, A1c, Thyroid profile, ESR, ANAND, Lyme, immunofixation * Vit B12 wnl 464, TSH/Free T4 wnl, A1c 5.8, ESR 40, RA negative * Encouraged PT, softners, and to avoid narcotics - Medications: * Tylenol 650mg PO Q6 PRN * Flexeril 10mg PO TID DEBBY * Lidocaine 1 ea TD DAILY * Morphine 4mg SC Q4 PRN IGT - A1c (10/17/18): 5.8 - Discussed diet and exercise Prophylaxis GI: Protonix DVT: Lovenox PT/OT Patient is stable for discharge per Dr. Preston Haines. Please continue home medications and continue the following new medication: Diclofenac 100mg PO BID. Please follow up with your PMD within one week of discharge. If symptoms worsen or reoccur, return to the nearest ER. Discharge Exam - Head Exam Head Exam: ATRAUMATIC, NORMAL INSPECTION, NORMOCEPHALIC - Eye Exam Eye Exam: EOMI, Normal appearance, PERRL Pupil Exam: NORMAL ACCOMODATION, PERRL - ENT Exam ENT Exam: Mucous Membranes Dry, Mucous Membranes Moist - Neck Exam Neck exam: Full Rom - Respiratory Exam Respiratory Exam: Decreased Breath Sounds, Clear to PA & Lateral - Cardiovascular Exam Cardiovascular Exam: REGULAR RHYTHM, +S1, +S2 - GI/Abdominal Exam GI & Abdominal Exam: Diminished Bowel Sounds, Soft - Rectal Exam Rectal Exam: Deferred - Neurological Exam Neurological exam: Oriented x3 Discharge Plan - Discharge Medications Prescriptions: Diclofenac Sodium 100 mg PO BID #60 tablet.dr - Follow Up Plan Condition: FAIR Disposition: HOME/ ROUTINE Instructions: Heart Healthy Diet, Diclofenac (Systemic), Low Back Pain (DC) Additional Instructions: Patient is stable for discharge per Dr. Preston Haines. Please continue home medications and continue the following new medication: Diclofenac 100mg PO BID. Please follow up with your PMD within one week of discharge. If symptoms worsen or reoccur, return to the nearest ER. Referrals: Colt Colbert MD [Staff Provider] -
--- NOTE | 2018-10-18 09:27 | CP.PCM.PN ---
Subjective - Date & Time of Evaluation Date of Evaluation: 10/18/18 Time of Evaluation: 09:27 - Subjective Subjective: Progress note for Dr. Preston Haines Patient was seen and examined at bedside in no acute distress. She says she still has back pain that radiates down her right thigh. She is able to walk and she denies numbness and tingling, loss of bowel, chest pain, palpitations, dyspnea, cough, n/v, fevers, headaches, abdominal pain. No acute events ove rnight. Objective - Vital Signs/Intake and Output Vital Signs (last 24 hours): Temp Pulse Resp BP Pulse Ox 97.7 F 85 20 96/67 L 98 10/18/18 07:00 10/18/18 07:00 10/18/18 07:00 10/18/18 07:00 10/18/18 07:00 - Medications Medications: Current Medications Acetaminophen (Tylenol 325mg Tab) 650 mg PO Q6 PRN PRN Reason: pain/fever Cyclobenzaprine HCl (Flexeril) 10 mg PO TID [facility] Last Admin: 10/18/18 09:19 Dose: 10 mg Docusate Sodium (Colace) 100 mg PO BID [facility] Last Admin: 10/18/18 09:11 Dose: 100 mg Enoxaparin Sodium (Lovenox) 40 mg SC DAILY [facility] Last Admin: 10/18/18 09:11 Dose: 40 mg Lidocaine (Lidoderm) 1 ea TD DAILY [facility] Last Admin: 10/18/18 09:12 Dose: 1 ea Lidocaine (Lidoderm) 1 ea TD DAILY [facility] Last Admin: 10/18/18 09:12 Dose: 1 ea Lorazepam (Ativan) 0.5 mg IVP ONCE PRN PRN Reason: Anxiety Last Admin: 10/17/18 15:29 Dose: 0.5 mg Morphine Sulfate (Morphine) 4 mg SC Q4 PRN PRN Reason: Pain, Mild (1-3) Last Admin: 10/17/18 10:55 Dose: 4 mg Pantoprazole Sodium (Protonix Ec Tab) 40 mg PO DAILY [facility] Last Admin: 10/18/18 09:11 Dose: 40 mg - Labs Labs: 10/18/18 08:08 10/18/18 08:08 - Additional Findings Additional findings: - Constitutional Appears: No Acute Distress - Head Exam Head Exam: ATRAUMATIC, NORMAL INSPECTION - Eye Exam Eye Exam: EOMI - ENT Exam ENT Exam: Mucous Membranes Moist - Respiratory Exam Respiratory Exam: Clear to Ausculation Bilateral, NORMAL BREATHING PATTERN. absent: Rales, Rhonchi, Wheezes, Respiratory Distress - Cardiovascular Exam Cardiovascular Exam: REGULAR RHYTHM, +S1, +S2 - GI/Abdominal Exam GI & Abdominal Exam: Soft, Normal Bowel Sounds. absent: Distended, Firm, Tenderness - Extremities Exam Extremities Exam: Normal Inspection. absent: Pedal Edema, Tenderness - Back Exam Back Exam: paraspinal tenderness (R>L). absent: rash noted Additional comments: Lidocaine patch on right lower back - Neurological Exam Neurological Exam: Alert, Awake, Oriented x3 - Psychiatric Exam Psychiatric exam: Normal Affect, Normal Mood - Skin Skin Exam: Dry, Normal Color, Warm Assessment and Plan - Assessment and Plan (Free Text) Plan: 53 year old female with a past medial history of nephrolithiasis, hyperchol esterolemia and bronchitis comes into the hospital after reporting right lower back pain for the past one day and admitted for intractable back pain. Degenerative Disc Disease, causing back pain - Lumbar xray:Mild spondylosis.[id number] narrowing of the intervertebral disc is space at L5-S1. - Abd/pelvis CT:B/L nonobstructing renal calculi; largest calculus measures 3 millimeter at the lower pole of the right kidney. No evidence of hydronephrosis. - Neurology Dr. Colbert consulted; help appreciated * MRI of the Lspine: multilevel degenerative disc disease worse at L4-5 w/diffuse posterior bulge and superimposed right foraminal and far lateral disc protrusion w/o neural compromise; moderate b/l facet arthropathy contribute to mild neural foraminal narrowing. * Odered Vit B12, A1c, Thyroid profile, ESR, ANAND, Lyme, immunofixation * Vit B12 wnl 464, TSH/Free T4 wnl, A1c 5.8, ESR 40, RA negative * Encouraged PT, softners, and to avoid narcotics - Medications: * Tylenol 650mg PO Q6 PRN * Flexeril 10mg PO TID DEBBY * Lidocaine 1 ea TD DAILY * Morphine 4mg SC Q4 PRN IGT - A1c (10/17/18): 5.8 - Discussed diet and exercise Prophylaxis GI: Protonix DVT: Lovenox PT/OT Patient is stable for discharge per Dr. Preston Haines. Please continue home medications and continue the following new medication: Diclofenac 100mg PO BID. Please follow up with your PMD within one week of discharge. If symptoms worsen or reoccur, return to the nearest ER. Case discussed with Dr. Clarence Haines, Sumi Varela, PGY2
--- NOTE | 2018-10-18 12:51 | PN ---
DATE: 10/18/2018 TIME OF EVALUATION: 07:00 a.m. NEUROLOGIC PROBLEM: Intractable lower back pain, probably disk disease. PHYSICAL EXAMINATION: VITAL SIGNS: Blood pressure 91/56, mean arterial pressure of 67, respiratory rate 18, pulse rate 73, temperature 97.8. GENERAL: The patient is comfortably lying down, feels somewhat improved from her pain. The patient's examination is unchanged compared with my previous examination, does not show any radiculopathy or focal neural deficit. MRI of the lumbosacral spine has been reviewed, showed disk degenerative disease at L4-L5 with mild neural foraminal . The patient is neurologically stable. Continue the present management. Avoid narcotics. The patient is followed as outpatient. Colt Colbert MD [facility] # [id number]
== END 2018-10-18 15:35 | disposition home or self-care (01) ==
LOC: C.ER 12:58 → C.9E 17:55 → C.6T 10-15 01:45
PROVIDERS: ADMIT Internal Medicine Nephrology; ATTEND Internal Medicine Nephrology
DX: M51.16 Intervertebral disc disorders with radiculopathy, lumbar region (principal); M47.816 Spondylosis without myelopathy or radiculopathy, lumbar region; E78.00 Pure hypercholesterolemia, unspecified; F17.210 Nicotine dependence, cigarettes, uncomplicated; N18.9 Chronic kidney disease, unspecified; K76.0 Fatty (change of) liver, not elsewhere classified; Z87.442 Personal history of urinary calculi
CPT/HCPCS: 36415; 72100; 72148; 74176; 80053; 81001; 82607; 83036; 83690; 83735; 84100; 84439; 84443; 85025; 85651; 86038; 86335; 86430; 86618; 96372; 97110; 97116; 97162; 97166; 97530; 99285; G0378; G8978; G8979; G8987; G8988; J1650; J2001; J2060; J2270; J7030